=== PATIENT | male | born 1955 | race Caucasian/White ===

== ENCOUNTER → 2016-05-18 | Outpatient (CLI) | payer BC ==
--- NOTE | 2016-05-18 09:35 | XR ---
EXAM TYPE: LUMBAR SPINE X RAY SERIES COMPARISON: NONE HISTORY: Chronic low back pain FINDINGS: Alignment is anatomic. The pedicles are intact. The transverse processes are intact. There is no s pondylolysis or spondylolisthesis. There are large osteophytes noted. There is severe multilevel dege nerative disc disease at all levels. Facet arthropathy at all levels. IMPRESSION: 1. Severe degenerative disc disease at all levels with near complete loss of disc space and multileve l facet arthropathy.
== END | disposition home or self-care (01) ==
LOC: RADXRMAIN 09:04
PROVIDERS: ATTEND Psychiatry & Neurology Neurology
DX: G35 Multiple sclerosis (principal); M51.36 Other intervertebral disc degeneration, lumbar region; M46.86 Other specified inflammatory spondylopathies, lumbar region
CPT/HCPCS: 72110

== ENCOUNTER → 2018-01-24 | Outpatient (CLI) | payer MEDICARE, BC ==
--- NOTE | 2018-01-24 16:10 | MR ---
EXAMINATION TYPE: MR brain/cspine wo/w DATE OF EXAM: 01/24/2018 COMPARISON: 04/18/2015 and a 3111 HISTORY: Multiple sclerosis. Follow-up exam. TECHNIQUE: Multiplanar, multisequence images of the brain and brainstem is performed without and with IV contras t, utilizing 9 mL intravenous Gadavist gadolinium contrast is administered intravenously. Demyelinat ing disease protocol with additional Sagittal Flair sequence performed. FINDINGS: T2 Lesions Present : Yes Approximate Number of Lesions: Approximately 7 within the right cerebral hemisphere and approximately 4 within the left cerebral hemisphere. Locations Identified : Periventricular/pericallosal and juxtacortical Size of Reference Lesion(s): 1. 0.7 cm x 0.6 cm x 1.1 cm on axial image 22 and sagittal image 27 2 0.4 cm x 0.2 cm x 0.3 cm on axial image 17 and sagittal image 14 Enhancing Lesion(s) Present: No T1 Hypointense Lesion(s) Present: Yes Change from Prior: Stable Diffusion weighted images demonstrate no evidence of a recent infarct or other diffusion abnormality. There is no worrisome extra-axial fluid collection. The ventricular system and cisternal spaces ar e normal in size and appearance. The brain volume is age appropriate. Midline structures demonstrate normal morphology. The craniocervical junction appears within normal limits. Post contrast images demonstrate no abnormal enhancement. The dural venous sinuses appear pa tent. The visualized sinuses are clear and the globes are intact. Right vertebral artery is noted to be diminutive. Major intracranial flow voids are maintained. Cervical spine vertebral bodies maintain normal vertebral alignment. There is a T1/T2 hyperintense ve rtebral body hemangioma T7. No white matter plaques are seen within the cervical spinal cord. Multile becky disc desiccation is seen. Bone marrow signal is within normal limits. 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 This wa s present on the prior exam of 2010 and is benign. C2-C3: Disc desiccation without spinal canal stenosis nor neural foraminal narrowing. C3-C4: Uncovertebral hypertrophy and facet arthropathy resulting in minimal left neural foraminal josselin rowing. Broad-based disc bulge mildly narrows the ventral subarachnoid space without significant spin al canal stenosis. C3-C4: Small posterior disc osteophyte complex is seen without spinal canal stenosis or neural forami nal narrowing. C4-C5: Small broad-based disc bulge without spinal canal stenosis nor neural foraminal narrowing. C5-C6: Broad-based disc bulge and uncovertebral hypertrophy is seen in combination with facet arthrop athy creating mild bilateral neural foraminal narrowing and mild spinal canal stenosis. C6-C7: There is a broad-based disc bulge and uncovertebral hypertrophy creating mild spinal canal bon nosis and mild neural foraminal narrowing. No focal herniation. C7-T1: Mild disc desiccation without herniation. No spinal canal stenosis or neural foraminal narrowi ng. No abnormal enhancement on postcontrast images of the cervical spine. IMPRESSION: 1. No progression in mild burden nonspecific white matter change compatible the patient's provided hi story of multiple sclerosis and demyelinating disease. No enhancement to suggest active demyelination . 2. No abnormal enhancement or demyelinating plaques within the cervical spine. Mild multilevel degene rative disc disease resulting in mild spinal canal stenosis at C5-C6.
--- NOTE | 2018-01-25 13:03 | MR ---
EXAMINATION TYPE: MR thoracic spine wo/w con DATE OF EXAM: 01/24/2018 COMPARISON: None HISTORY: MS CONTRAST: Standard multiplanar, multisequence MRI departmental protocol utilizing 9 mL intravenous Gadavist jonel olinium contrast. FINDINGS: Vertebral bodies maintain normal vertebral body height and alignment. Small anterior osteophytes are appreciated. Bone marrow signal is overall within normal limits. Spinal cord signal is also within no rmal limits with no appreciable demyelinating plaques. Multilevel disc desiccation is seen, however no discrete disc herniations are present. There is a bro ad-based disc bulge at T9-T10 mildly narrowing the bilateral neural foramen. Otherwise no foraminal n arrowing is seen throughout the thoracic spine. At T12-L1 there is a broad-based disc bulge, facet ar thropathy and ligamentum flavum buckling that is only partially visualized given [id number]. Lung bases demonstrate bibasilar atelectasis. No abnormal enhancement is seen throughout the thoracic spine. IMPRESSION: 1. No demyelinating plaques or abnormal enhancement throughout the thoracic spine in this patient wit h demyelinating disease. 2. Mild multilevel degenerative disc disease of the thoracic spine with no focal disc herniation.
== END | disposition home or self-care (01) ==
LOC: RADMRIMAIN 09:51
PROVIDERS: ATTEND Psychiatry & Neurology Neurology
DX: G35 Multiple sclerosis (principal); M48.02 Spinal stenosis, cervical region; M50.30 Other cervical disc degeneration, unspecified cervical region; R90.89 Other abnormal findings on diagnostic imaging of central nervous system; M51.34 Other intervertebral disc degeneration, thoracic region
CPT/HCPCS: 82565; 70553; 72156; 72157; 36415; A9585

== ENCOUNTER 2020-12-15 15:24 | Emergency (ER) | payer BC, MEDICARE ==
[2020-12-15 15:45] VITALS: RESP 18; TEMP 99
--- NOTE | 2020-12-15 15:59 | ED ---
General Adult HPI - General Chief complaint: Abdominal Pain Stated complaint: pain in groin area Time Seen by Provider: 12/15/20 15:48 Source: patient, RN notes reviewed, old records reviewed Mode of arrival: wheelchair Limitations: no limitations - History of Present Illness Initial comments: 65-year-old male presenting with a three-week history of pain and swelling in the right medial 5. Patient states he's had this on and off for several years but has been more consistent over the past 3 weeks. He does have varicose veins in the right lower extremity and had started noticing some swelling in the medial thigh which had not been present previously. No chest pain or dyspnea. No abdominal pain. No testicular pain, no groin swelling. No history of hernia. Patient does have family history of DVT. - Related Data Allergies Allergy/AdvReac Type Severity Reaction Status Date / Time glatiramer (copolymer 1) Allergy Anaphylaxis Verified 12/15/20 15:46 [From [employer]] Review of Systems ROS Statement: Those systems with pertinent positive or pertinent negative responses have been documented in the HPI. ROS Other: All systems not noted in ROS Statement are negative. Past Medical History Past Medical History: Coronary Artery Disease (CAD) Additional Past Medical History / Comment(s): MS History of Any Multi-Drug Resistant Organisms: None Reported Past Surgical History: Heart Catheterization With Stent Past Psychological History: No Psychological Hx Reported Smoking Status: Current every day smoker Past Alcohol Use History: Rare Past Drug Use History: Marijuana General Exam Limitations: no limitations General appearance: alert, in no apparent distress Head exam: Present: atraumatic, normocephalic Eye exam: Present: normal appearance, PERRL ENT exam: Present: normal exam Neck exam: Present: normal inspection. Absent: tenderness, meningismus Respiratory exam: Present: normal lung sounds bilaterally. Absent: respiratory distress, wheezes Cardiovascular Exam: Present: regular rate, normal rhythm GI/Abdominal exam: Present: soft. Absent: distended, tenderness, guarding, hernia exam: Present: normal inspection. Absent: scrotal swelling Extremities exam: Present: normal capillary refill, other (Varicose veins throughout the right lower extremity, he has a small superficial swelling in the medial aspect of the thigh measuring approximately 2 cm. This is nonpulsatile. Distal pulses are intact 2+, 2+ femoral pulse. No skin changes to suggest infection.) Neurological exam: Present: alert, oriented X3, CN II-XII intact. Absent: motor sensory deficit Psychiatric exam: Present: normal affect, normal mood Skin exam: Present: warm, dry, intact. Absent: cyanosis, diaphoretic Course Vital Signs 12/15/20 15:42 Temperature 99.0 F Pulse Rate 81 Respiratory 18 Rate Blood Pressure 132/82 O2 Sat by Pulse 96 Oximetry Medical Decision Making - Medical Decision Making 65-year-old male who had presented with some swelling and dull aching pain in the medial thigh. He does have varicose veins throughout the leg. This does appear to be a deep varicose vein at the site of pain. Distal pulses are inta ct. There is no signs of infection. Ultrasound performed rule out DVT which is negative. Patient has an appointment with his primary care's addition tomorrow. He will maintain this appointment. Return parameters discussed. Disposition Clinical Impression: Leg pain, anterior, Varicose vein of leg Disposition: HOME SELF-CARE Condition: Fair Is patient prescribed a controlled substance at d/c from ED?: No Referrals: Kianna Nichole MD [Primary Care Provider] - 1-2 days Time of Disposition: 17:07
--- NOTE | 2020-12-15 17:04 | US ---
EXAMINATION TYPE: US venous doppler duplex LE RT DATE OF EXAM: 12/15/2020 3:58 PM COMPARISON: NONE CLINICAL HISTORY: dvt. Right groin pain x couple weeks, patient on blood thinners SIDE PERFORMED: Right TECHNIQUE: The lower extremity deep venous system is examined utilizing real time linear array sonog danna with graded compression, doppler sonography and color-flow sonography. VESSELS IMAGED: Common Femoral Vein Deep Femoral Vein Greater Saphenous Vein * Femoral Vein Popliteal Vein Small Saphenous Vein * Proximal Calf Veins (* superficial vessels) Right Leg: Appears negative for DVT IMPRESSION: Grayscale, color doppler, spectral doppler imaging performed of the deep veins of the lo wer extremities. There is normal flow, compressibility, vascular waveforms. No evidence of right lo wer extremity deep venous thrombosis.
[2020-12-15 17:28] VITALS: BP 144/98; PULSE 67
== END 2020-12-15 17:27 | disposition home or self-care (01) ==
LOC: EC 15:24
DX: I83.811 Varicose veins of right lower extremity with pain (principal); I25.10 Atherosclerotic heart disease of native coronary artery without angina pectoris; R10.30 Lower abdominal pain, unspecified; F17.200 Nicotine dependence, unspecified, uncomplicated; Z95.5 Presence of coronary angioplasty implant and graft; Z88.8 Allergy status to other drugs, medicaments and biological substances
CPT/HCPCS: 99284

== ENCOUNTER → 2021-07-15 | Outpatient (CLI) | payer MEDICARE ==
--- NOTE | 2021-07-15 10:36 | US ---
EXAMINATION TYPE: US arterial LE single level DATE OF EXAM: 07/15/2021 10:20 AM CLINICAL HISTORY: I70.213 ATHEROSCLEROSIS OF [place]PPER [place] ARTERY OF [place] EXT. History of hypertension and pr ior heart attack. Right groin pain with varicose veins. Doppler Waveforms: Right: Multiphasic Left: Multiphasic Toe Brachial Indices: Right: 0.88 Left: 1.12 IMPRESSION: Normal phasicity and TBI values bilaterally.
--- NOTE | 2021-07-15 10:52 | US ---
LOWER EXTREMITY VENOUS INSUFFICIENCY CLINICAL HISTORY: I70.213 ATHEROSCLEROSIS OF [place] ARTERY OF [place] EXT. SIDE PERFORMED: Bilateral 1) Color flow is present and patency is documented in the following vessels. No DVT or SVT is noted . Common Femoral Vein Deep Femoral Vein Femoral Vein Popliteal Vein Proximal Calf Veins Greater Saph Vein Upper Small Saph Vein 2) There is venous reflux noted at the following venous levels: Right: CFV, Upper GSV, DFV Left: CFV IMPRESSION: 1. Venous reflux evident within the left and right common femoral vein and within the right proximal greater saphenous vein and within the deep femoral vein on the right.
== END | disposition home or self-care (01) ==
LOC: RADUSWWP 08:46
PROVIDERS: ATTEND Surgery Vascular Surgery
DX: I70.213 Atherosclerosis of native arteries of extremities with intermittent claudication, bilateral legs (principal); I83.11 Varicose veins of right lower extremity with inflammation; I83.12 Varicose veins of left lower extremity with inflammation
CPT/HCPCS: 93922; 93970

== ENCOUNTER → 2021-08-07 | Outpatient (CLI) | payer MEDICARE ==
[2021-08-07 11:40] LABS: INR 0.9 (<1.2); Partial Thromboplastin Time 23.2 sec (22.0-30.0); Prothrombin Time 10.2 sec (9.0-12.0)
[2021-08-07 14:22] LABS: HCT 46.6 % (39.6-50.0); HGB 15.7 g/dL (13.0-17.0); MCH 31.5 pg (27.0-32.0); MCHC 33.7 g/dL (32.0-37.0); MCV 93.6 fL (80.0-97.0); Mean Platelet Volume 10.1 fL (9.5-12.2); NRBC Per 100 WBC 0 /100 WBCS (0.0-0.0); Platelet Count 211 X 10*3/uL (140-440); RBC 4.98 X 10*6/uL (4.40-5.60); RDW 13.5 % (11.5-14.5); WBC 9.06 X 10*3/uL (4.50-10.00)
[2021-08-07 14:47] LABS: African American GFR (CKD) 103.5 (60.0-200.0); Albumin 4.4 g/dL (3.8-4.9); Albumin/Globulin Ratio 1.69 (1.60-3.17); Anion Gap 9.3 mmol/L (10.00-18.00); Blood Urea Nitrogen 10.8 mg/dL (9.0-27.0); Calcium 9.6 mg/dL (8.7-10.3); Carbon Dioxide 29.7 mmol/L (20.0-27.5); Globulin 2.6 g/dL (1.6-3.3); Non-African American GFR(CKD) 89.3 (60.0-200.0); Potassium 4.4 mmol/L (3.5-5.5); Total Bilirubin 0.5 mg/dL (0.30-1.20)
[2021-08-07 18:07] LABS: Appearance,Urine Clear (Clear); Bacteria,Urine None Seen /HPF (None Seen); Bilirubin,Urine Negative (Negative); Blood,Urine Trace (Negative); Color,Urine Yellow (Yellow); Ketones,Urine Negative (Negative); Nitrite,Urine Negative (Negative); Specific Gravity,Urine 1.011 (1.001-1.030); Urobilinogen,Urine 0.2 (0.2,1.0)
== END | disposition home or self-care (01) ==
LOC: LABPAT 10:27
PROVIDERS: ATTEND Orthopaedic Surgery
DX: Z01.812 Encounter for preprocedural laboratory examination (principal); M16.11 Unilateral primary osteoarthritis, right hip
CPT/HCPCS: 36415; 80053; 81001; 85027; 85610; 85730; 87070

== ENCOUNTER 2021-08-19 11:19 | Day surgery (SDC) | payer MEDICARE ==
[2021-08-18 08:48] VITALS: BMI 25.0
[~2021-08-19 11:19] MED LIST: ACETAMINOPHEN TAB 500 MG TAB PO PRN; DEXAMETHASONE SOD PHOSPHATE 10 MG/ML 1 ML VIAL IV PRN; DOCUSATE 100 MG CAP PO PRN; FAMOTIDINE 20 MG/2 ML VIAL IVP PRN; KETOROLAC 15 MG/ML 1 ML VIAL IVP PRN; LIDOCAINE 1% (10MG/ML) FOR IV START INTRADERMA PRN; ONDANSETRON 4 MG/2 ML VIAL IVP PRN; ROPIVACAINE/EPI/CLONIDINE/KET 50 ML SYRINGE MISCELLANE PRN; TRANEXAMIC ACID IN NACL,ISO-OS 1,000 MG in SALINE 1 100ML.BAG IVPB PRN; oxyCODONE ER 10 MG TAB.ER.12H PO PRN
[2021-08-19] MEDS: LACTATED RINGERS 1,000 ML IV SCH (12:20)
[2021-08-19] MEDS ORDERED: PROPOFOL 10 MG/ML 20 ML VIAL IV ONE (13:29)
[2021-08-19] MEDS ORDERED: LIDOCAINE 2% INJ 20 MG/ML (2 ML VIAL) ONE (13:29)
[2021-08-19] MEDS ORDERED: HYDROmorphone (PF) 1 MG/ML ONE (13:29)
[2021-08-19] MEDS ORDERED: SUCCINYLCHOLINE CHLORIDE VIAL 200 MG/10 ML VIAL IV ONE (13:29)
[2021-08-19] MEDS ORDERED: NEOSTIGMINE 1 MG/ML 10 ML VIAL ONE (13:29)
[2021-08-19] MEDS ORDERED: TRANEXAMIC ACID IN NACL,ISO-OS 1,000 MG/100 ML BAG ONE (13:29)
[2021-08-19] MEDS ORDERED: ROCURONIUM 10 MG/ML (5 ML VIAL) IV ONE (13:29)
[2021-08-19] MEDS ORDERED: PHENYLEPHRINE-0.9% NACL SYG 1,000 MCG/10 ML SYRINGE ONE (13:29)
[2021-08-19] MEDS ORDERED: fentaNYL (PF) 50 MCG/ML 2 ML AMP ONE (13:29)
[2021-08-19] MEDS ORDERED: MIDAZOLAM 2 MG/2 ML VIAL ONE (13:29)
[2021-08-19] MEDS ORDERED: GLYCOPYRROLATE 0.2 MG/ML 2 ML VIAL ONE (13:29)
[2021-08-19] MEDS ORDERED: KETAMINE 10 MG/ML 20 ML VIAL ONE (13:29)
[2021-08-19] MEDS ORDERED: ceFAZolin 3,000 MG in SODIUM CHLORIDE 0.9% IRRIGATIO 3,000 ML IRRIGATION ONE (14:14)
[2021-08-19] MEDS ORDERED: LACTATED RINGERS 1,000 ML IV ONE (15:30)
--- NOTE | 2021-08-19 15:55 | XR ---
EXAMINATION TYPE: XR Hip Limited RT DATE OF EXAM: 08/19/2021 COMPARISON: NONE HISTORY: Postop TECHNIQUE: 8 view submitted. FINDINGS: There is postsurgical change in near anatomic alignment. There is soft tissue edema and emphysema. IMPRESSION: 1. Postoperative change. Appears in near-anatomic alignment.
--- NOTE | 2021-08-19 15:56 | FL ---
EXAMINATION TYPE: FL guidance operating room DATE OF EXAM: 08/19/2021 HISTORY: Fluoroscopy time 42 seconds of fluoroscopy provided. IMPRESSION: 1. Fluoroscopy time.
[2021-08-19] MEDS ORDERED: ONDANSETRON 4 MG/2 ML VIAL IVP PRN (16:03)
[2021-08-19] MEDS ORDERED: hydrOXYzine pamoate 25 MG CAP PO PRN (16:03)
[2021-08-19] MEDS ORDERED: HYDROmorphone 0.5 MG/0.5 ML SYRINGE IVP PRN ×3 (16:03)
[2021-08-19] MEDS ORDERED: NALOXONE 0.4 MG/ML 1 ML VIAL IV PRN (16:03)
[2021-08-19] MEDS ORDERED: HYDROcodone/APAP 5-325MG 1 EACH TAB PO PRN (16:03)
[2021-08-19] MEDS ORDERED: KETOROLAC 15 MG/ML 1 ML VIAL IVP ONE (16:05)
--- NOTE | 2021-08-19 16:06 | P.OP ---
Date of Procedure: 08/19/21 Preoperative Diagnosis: 1. Severe right hip osteoarthritis 2. Coronary artery disease 3. Former smoker (patient quit 1 month prior to surgery) Postoperative Diagnosis: Same Procedure(s) Performed: Right direct anterior total hip arthroplasty Implants: 1. Winters Trident II 56 cup 2. Gianna accolade II size # 9 standard offset femoral stem 3. Biolox delta ceramic femoral head 36 mm, -2.5 mm neck Anesthesia: GETA Surgeon: Gerson Bolaños Survey And Mapping Technician #1: Rikki Pleitez Estimated Blood Loss (ml): 200 IV fluids (ml): 1,200 Pathology: other (femoral head sent to pathology) Condition: stable Disposition: PACU Indications for Procedure: I had a long discussion with the patient in the office on the potential risks and complications of an elective total hip replacement through a direct anterior approach. Risks discussed include, but are certainly not limited to, risks from anesthesia, superficial infection requiring local wound care or antibiotics, deep osvaldo-prosthetic joint infection and the treatment required to eradicate infection, intraoperative fracture, postoperative periprosthetic fracture, damage to local blood vessels or nerves particularly the lateral femoral cutaneous nerve, delayed wound healing requiring local wound care or possibly surgical debridement, hip dislocation, leg length discrepancy, soft tissue irritation around the total hip implant such as iliopsoas tendinitis or trochanteric bursitis, wear and osteolysis from the implants, squeaking or audible noises, groin pain, thigh pain, heterotopic ossification, stiffness, aseptic loosening of the implants, dissatisfaction with surgical outcome, need for revision surgery, DVT, PE, swelling of the operative extremity, acute coronary event, stroke, failure to thrive, and possibly loss of life or limb. The patient understands that while these are the most common complications after an elective hip replacement there are certainly other less common complications possible. They were given ample time to ask questions regarding the potential complications of a hip replacement. Following our discussion the patient provided their verbal and written consent to go forward with an elective total hip replacement. The patient has a history of smoking. We will long discussion on the risks of smoking and how pertains to total hip replacement particularly with delayed wound healing and infection. The patient was able to quit smoking for one month prior to surgery. He was encouraged to refrain from smoking in the postoperative period as well. Operative Findings: Severe hip osteoarthritis and external rotation contracture Description of Procedure: The patient was identified in the preoperative holding area and the correct hip was marked with my initials. I reviewed the procedure and consent with the patient. All of their questions were answered. The patient was then brought back into the operating room by anesthesia. While on the [facility] anesthesia was administered by the anesthesia team. Preoperative antibiotics and tranexamic acid were also given. After the patient was under anesthesia I examined their ankles to determine their preoperative leg length discrepancy. The skin over the anterior aspect of the hip was shaved to remove hair over the site of planned incision. Both feet and ankles were padded with webril and boots for the [place] were applied. The patient was then carefully transferred onto the [place] table. A perineal post was immediately placed. The arms were placed on arm holders and were well-padded. Both boots were secured to the spars on the [place] table. The patient was positioned so that the pelvis was centered over the post. Nonsterile drapes were applied. A timeout was performed identifying the correct patient, operative extremity, and procedure. At this point fluoroscopy was brought in to take preoperative images of the pelvis and operative hip. Using the standing AP pelvis from the office as a template, a comparable image was obtained with fluoroscopy. A metallic bar was used to create a bi-ischial line for use as a reference to leg length adjustments during the procedure. Global offset was also measured on both the operative and nonoperative leg. Fluoroscopy was then brought out and a pre-scrub using a chlorhexidine scrub brush was performed. The operative limb was then prepped and draped in the standard sterile fashion. An anterior longitudinal incision was made lateral and distal to the ASIS. The skin and subcutaneous tissues were incised sharply. The underlying tensor fasci a was identified and incised in its midportion. The fascia was dissected free from the underlying muscle and the muscle belly was retracted. A blunt tipped cobra retractor was placed over the superior neck under the muscle fibers of the gluteus minimus. The deep enveloping fascia of the tensor was incised. The anterior leash of vessels were then identified and cauterized. The fascia between the rectus and the capsule was then incised and the pre-capsular fat was excised. A second Cobra was placed inferior to the neck. The interval between the rectus and iliocapsularis and the hip capsule was developed and a retractor was placed carefully over the anterior rim of the acetabulum. A T-shaped anterior capsulotomy was performed. The superior capsular leaflet was left in place in the inferior capsular flap was excised. The Cobra retractors were placed intracapsularly. We then made a femoral neck osteotomy according to preoperative and intraoperative templating and confirmed the level of the osteotomy using fluoroscopic imaging. The femoral head was removed, passed off to the back table, and sized. The superior capsular flap was excised. Retractors were placed circumferentially exposing the acetabulum. We then circumferentially debrided the acetabulum free of labrum and osteophytes. The pulvinar was removed to fully visualize the cotyloid fossa. We then sequentially reamed to achieve peripheral fit and excellent bleeding subchondral bone. The socket was thoroughly irrigated. The acetabular component was impacted into the appropriate position using fluoroscopy to guide version, inclination, and depth of insertion taking care to have a comparable image of the AP pelvis to the standing image taken in the office. An excellent press-fit was achieved and final position was confirmed using fluoroscopy. The press fit was augmented with bony cancellus dome screws. The liner was then impacted into the socket. Attention was then turned to the femur. The remnant dorsal lateral capsule was excised. The short external rotators were visible and protected. A bone hook was used to confirm appropriate translation of the trochanter away from the acetabulum. The leg was then extended and adducted and the bone hook was used to elevate the femur for broaching. A box osteotome and blunt tipped canal sound was then utilized to gain access to the femoral canal. We then sequentially broached the femur in appropriate anteversion until excellent torsional stability was achieved. The neck cut was brought flush to the trial broach with a calcar planar. A trial neck and head were then placed onto the broach and the hip was atraumatically reduced under direct visualization. External rotation to 90 was performed to assess stability. Fluoroscopy was brought in. An AP and lateral fluoroscopic image of the proximal femur was obtained to assess position and fill of the trial broach. An AP of the pelvis was then obtained and matched to the preoperative image taken. A bi-ischial bar was then placed and measurements were taken to assess changes in length and offset. The hip was then carefully dislocated, the proximal femur was exposed, and the trial implants were removed. The wound and proximal femur was thoroughly irrigated using sterile saline and pulsatile lavage. The final femoral implant was dispensed and gently tapped into place generating an excellent press-fit. The trunnion was cleansed and the final head was tapped into place to engage the Gomez taper. The acetabulum was irrigated and visualized to be free of debris. The hip was carefully reduced. Stability was checked clinically with external rotation to 90 and there was no evidence of instability. Final fluoroscopic images were taken. The wound was then thoroughly irrigated and soaked with a dilute Betadine rinse for 3 minutes. 3 L of sterile saline was irrigated through the wound using pulsatile lavage. Local anesthetic cocktail was injected into the soft tissues around the surgical field. A deep drain was placed. The wound was then closed in layers. A sterile dressing was placed over the surgical incision and drain site. The drapes were taken down and the patient was carefully transferred off of the [place] table. Following removal of the boots the leg lengths felt acceptable. The patient was then taken to recovery room having tolerated the procedure well. Rikki Pleitez PA-C was required as a skilled library serials assistant for patient positioning, surgical exposure, retraction, placement of implants, and closure of the surgical wound. PLAN: The patient can weight-bear as tolerated on the operative extremity. 2 doses of postoperative antibiotics. DVT prophylaxis with aspirin 81 mg twice a day based on preoperative risk stratification. Physical therapy for gait training. Discontinue drain postoperative day #1 if output is less than 100 mL per shift.
[2021-08-19] MEDS: HYDROmorphone 0.5 MG/0.5 ML SYRINGE IVP PRN ×3 (16:07→16:33)
[2021-08-19] MEDS ORDERED: hydrOXYzine HCL 25 MG TAB PO PRN (17:02)
[2021-08-19] MEDS: ATORVASTATIN 40 MG TAB PO SCH (17:52)
[2021-08-19] MEDS: CYANOCOBALAMIN 500 MCG TAB PO SCH (17:53)
[2021-08-19] MEDS: CHOLECALCIFEROL 25 MCG (1000 IU) TABLET PO SCH (17:53)
[2021-08-19] MEDS ORDERED: SENNOSIDES-DOCUSATE SODIUM 1 EACH TAB PO SCH (21:00)
[2021-08-19] MEDS: ASPIRIN 81 MG PO SCH (21:41)
[2021-08-20] MEDS: HYDROcodone/APAP 5-325MG 1 EACH TAB PO PRN ×3 (00:14→16:46)
[2021-08-20] MEDS: ASPIRIN 81 MG PO SCH (08:30)
[2021-08-20] MEDS: CHOLECALCIFEROL 25 MCG (1000 IU) TABLET PO SCH (08:30)
[2021-08-20] MEDS: CYANOCOBALAMIN 500 MCG TAB PO SCH (08:30)
[2021-08-20] MEDS: ATORVASTATIN 40 MG TAB PO SCH (08:30)
[2021-08-20] MEDS: LACTATED RINGERS 1,000 ML IV SCH (08:31)
[2021-08-20] MEDS ORDERED: lisinopriL 10 MG TAB PO SCH (09:00)
[2021-08-20 09:25] LABS: Basophils # (A) 0.02 X 10*3/uL (0.00-0.10); Basophils % (A) 0.1 %; Eosinophils # (A) 0.01 X 10*3/uL (0.04-0.35); Eosinophils % (A) 0.1 %; HCT 37.5 % (39.6-50.0); HGB 12.8 g/dL (13.0-17.0); Immature Grans, Automated 0.8 %; Lymphocytes # (A) 1.01 X 10*3/uL (0.90-5.00); Lymphocytes % (A) 7.4 %; MCH 31.5 pg (27.0-32.0); MCHC 34.1 g/dL (32.0-37.0); MCV 92.4 fL (80.0-97.0); Mean Platelet Volume 10.1 fL (9.5-12.2); Monocytes # (A) 0.94 X 10*3/uL (0.20-1.00); Monocytes % (A) 6.9 %; NRBC Per 100 WBC 0 /100 WBCS (0.0-0.0); Neutrophils % (A) 84.7 %; Platelet Count 181 X 10*3/uL (140-440); RBC 4.06 X 10*6/uL (4.40-5.60); RDW 13.5 % (11.5-14.5); WBC 13.69 X 10*3/uL (4.50-10.00)
[2021-08-20 09:44] LABS: African American GFR (CKD) 103.5 (60.0-200.0); Albumin 3.2 g/dL (3.8-4.9); Albumin/Globulin Ratio 1.68 (1.60-3.17); Anion Gap 9.2 mmol/L (10.00-18.00); BUN/Creat Ratio 17.78 Ratio (12.00-20.00); Calcium 8.5 mg/dL (8.7-10.3); Carbon Dioxide 24.8 mmol/L (20.0-27.5); Globulin 1.9 g/dL (1.6-3.3); Non-African American GFR(CKD) 89.3 (60.0-200.0); Potassium 4.4 mmol/L (3.5-5.5); Total Bilirubin 0.5 mg/dL (0.30-1.20); Total Protein 5.1 g/dL (6.2-8.2)
[2021-08-20 11:12] VITALS: RESP 16
[2021-08-20] MEDS ORDERED: TAMSULOSIN 0.4 MG CAP.ER.24H PO SCH (12:00)
[2021-08-20 15:15] VITALS: BP 106/68; PULSE 62; TEMP 98.2
--- NOTE | 2021-08-20 17:09 | P.DS ---
Providers Expected date of discharge: 08/20/21 Attending physician: Gerson Bolaños Consults: 08/19/21 16:03 Consult Physician Routine Consulting Provider: Viki Barros Consult Reason/Comments: medical management Do you want consulting provider notified?: Yes Primary care physician: Kianna Nichole [facility] Course: This is a 66-year-old male who was last seen in our office with complaint of con tinued right hip pain. The patient has a known history of degenerative arthritis of the right hip and presents to discuss surgical options. After discussion and consideration the patient elects to proceed with total right hip arthroplasty. He is seen preoperatively by his PCP Dr. Nichole and cleared for surgery. The patient is admitted to [facility] for total right hip arthroplasty. The procedure is performed without complication or sequelae. The patient is doing well postoperatively. Vital signs and postoperative labs are stable. Patient is seen and examined bedside this morning. He states the pain in his right hip is well controlled at this time. He is ambulating with a walker with minimal assistance. He is tolerating his diet well. Per nursing, he has had is sues urinating although Flomax has been initiated by internal medicine AND he has been cleared for return home. Patient has since voided freely. Patient denies chest pain, shortness of breath, other, vomiting, fevers, chills. On examination, patient is sitting up in bed in no apparent distress. he is alert and oriented 3. On inspection of the right hip, there is a clean, dry, intact operative dressing in place with no bleeding or drainage through the dressing. Hemovac drain is removed bedside. There is mild swelling of the thigh, the thigh soft and compressible. Motor and sensory function is intact of the right lower extremity. Femoral nerve function is intact. Right lower extremities were well perfused with brisk capillary refill distally. Calf is soft and nontender to palpation. The patient is discharged to home today in good condition, pending medical clearance. Please see discharge orders. Please refer to the med rec for accurate list of medications. Plan - Discharge Summary Discharge Rx Participant: Yes New Discharge Prescriptions: New Aspirin 81 mg PO BID 30 Days #60 tab Docusate [Colace] 100 mg PO BID #60 capsule HYDROcodone/APAP 5-325MG [Tim[place] 5-325] 1 - 2 tab PO Q6HR PRN #40 tab PRN Reason: Pain Omeprazole 40 mg PO DAILY 30 Days #30 cap Diclofenac Sodium [Voltaren] 75 mg PO BID 30 Days #60 tab No Action Atorvastatin [Lipitor] 40 mg PO DAILY Cholecalciferol [Vitamin D3 (25 Mcg = 1000 Iu)] 25 mcg PO DAILY Aspirin 81 mg PO DAILY ramipriL [Ramipril] 2.5 mg PO DAILY hydrOXYzine HCL [Atarax] 25 mg PO TID PRN PRN Reason: hives atenoloL [Tenormin] 12.5 mg PO DAILY Cyanocobalamin (Vitamin B-12) [Vitamin B-12] 1,000 mcg PO DAILY Discharge Medication List Aspirin 81 mg PO DAILY 08/18/21 [History] Atorvastatin [Lipitor] 40 mg PO DAILY 08/18/21 [History] Cholecalciferol [Vitamin D3 (25 Mcg = 1000 Iu)] 25 mcg PO DAILY 08/18/21 [History] Cyanocobalamin (Vitamin B-12) [Vitamin B-12] 1,000 mcg PO DAILY 08/18/21 [History] atenoloL [Tenormin] 12.5 mg PO DAILY 08/18/21 [History] hydrOXYzine HCL [Atarax] 25 mg PO TID PRN 08/18/21 [History] ramipriL [Ramipril] 2.5 mg PO DAILY 08/18/21 [History] Aspirin 81 mg PO BID 30 Days #60 tab 08/20/21 [Rx] Diclofenac Sodium [Voltaren] 75 mg PO BID 30 Days #60 tab 08/20/21 [Rx] Docusate [Colace] 100 mg PO BID #60 capsule 08/20/21 [Rx] HYDROcodone/APAP 5-325MG [[place] 5-325] 1 - 2 tab PO Q6HR PRN #40 tab 08/20/21 [Rx] Omeprazole 40 mg PO DAILY 30 Days #30 cap 08/20/21 [Rx] Follow up Appointment(s)/Referral(s): [facility] [NON-STAFF] - As Needed (walker and hospital bed) [facility], [NON-STAFF] - As Needed Gerson Bolaños MD [Medical Doctor] - 2 Weeks Patient Instructions/Handouts: Precautions after Total Joint Replacement Surgery (DC), Joint Replacement Surgery (DC), Total Hip Replacement (DC), Anterior Hip Replacement (DC) Activity/Diet/Wound Care/Special Instructions: Weight bear as tolerated on operative leg with a walker. Keep operative dressing intact until follow-up appointment. Take pain medications as prescribed. Take aspirin 81mg BID x 4 weeks for blood clot prevention. Follow-up in the office in [address] Bolaños. Call the office with any questions or concerns, . Discharge Disposition: HOME WITH HOME HEALTH SERVICES
--- NOTE | 2021-08-20 18:14 | P.CONS ---
History of Present Illness - Reason for Consult Consult date: 08/19/21 - History of Present Illness Pavel Mario, who was admitted to [facility] by Dr. Bolaños and underwent right total hip arthroplasty for history of severe right hip osteoarthritis that failed conservative management. Patient was admitted to medical floor, consultation for medical management was requested. He has a known history of coronary artery disease, with history of angioplasty and stent placement, history of hypertension, history of hyperlipidemia, history of osteoarthritis, history of kidney stones, history of spinal stenosis with previous history of epidural injection in the lumbar spine. On review of systems patient is alert and oriented 3 in no apparent distress he is complaining of pain in the right hip area otherwise he denies any complaints there is no fever or chills no headache or dizziness no chest pain no shortness of breath no cough no nausea or vomiting no abdominal pain no diarrhea and no urinary symptoms. 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 x2, 4 stents total, arthroscopy left knee, CTS right hand, colonoscopy, pain procedures Past Anesthesia/Blood Transfusion Reactions: Postoperative Nausea & Vomiting (PONV) Additional Past Anesthesia/Blood Transfusion Reaction / Comm: nausea @times Date of Last Stent Placement:: 2010 Smoking Status: Former smoker - Past Family History Mother Family Medical History: No Reported History Father Family Medical History: Deep Vein Thrombosis (DVT) Medications and Allergies Home Medications Medication Instructions Recorded Confirmed Type Aspirin 81 mg PO DAILY 08/18/21 08/18/21 History Atorvastatin [Lipitor] 40 mg PO DAILY 08/18/21 08/18/21 History Cholecalciferol [Vitamin D3 (25 25 mcg PO DAILY 08/18/21 08/18/21 History Mcg = 1000 Iu)] Cyanocobalamin (Vitamin B-12) 1,000 mcg PO DAILY 08/18/21 08/18/21 History [Vitamin B-12] atenoloL [Tenormin] 12.5 mg PO DAILY 08/18/21 08/18/21 History hydrOXYzine HCL [Atarax] 25 mg PO TID PRN 08/18/21 08/19/21 History ramipriL [Ramipril] 2.5 mg PO DAILY 08/18/21 08/18/21 History Aspirin 81 mg PO BID 30 Days #60 tab 08/20/21 Rx Diclofenac Sodium [Voltaren] 75 mg PO BID 30 Days #60 tab 08/20/21 Rx Docusate [Colace] 100 mg PO BID #60 capsule 08/20/21 Rx HYDROcodone/APAP 5-325MG [[place] 1 - 2 tab PO Q6HR PRN #40 tab 08/20/21 Rx 5-325] Omeprazole 40 mg PO DAILY 30 Days #30 cap 08/20/21 Rx Allergies Allergy/AdvReac Type Severity Reaction Status Date / Time glatiramer (copolymer 1) Allergy Anaphylaxis Verified 08/19/21 11:49 [From Copaxone] Physical Exam Vitals: Vital Signs Temp Pulse Pulse Resp BP Pulse Ox 08/19/21 16:40 71 16 115/76 97 08/19/21 16:25 87 16 127/77 96 08/19/21 16:10 87 16 115/76 100 08/19/21 15:57 97.9 F 87 12 133/78 100 08/19/21 11:52 98.5 F 70 18 122/83 97 Intake and Output 08/19/21 08/19/21 08/19/21 06:59 14:59 22:59 Intake Total 1051 300 Output Total 200 Balance 1051 100 Intake: IV 1051 300 Output: Estimated Blood Loss 200 Other: Weight 85.5 kg In general patient is alert and oriented x 3 in no distress HEENT head normocephalic and atraumatic Neck is supple no JVD no goiter no lymphadenopathy no carotid bruit Chest examination is clear to auscultation no crackles no wheezing Cardiac exam reveals regular heart sounds S1 and S2 no gallops no murmurs Abdomen is soft nontender no organomegaly with normal bowel sounds Extremity exam reveals no edema no cyanosis or clubbing Neurological examination reveals no gross focal deficits Results CBC & Chem 7: 08/20/21 04:13 08/20/21 04:13 Assessment and Plan Plan: Osteoarthritis of the right hip status post right total hip arthroplasty Pain management and DVT prophylaxis as per orthopedic protocol Underlying history of coronary artery disease with previous history of angioplasty and stent placement Stable at this time there is no chest pain or shortness of breath or any symptoms to suggest acute coronary syndrome Underlying history of hypertension Underlying history of hyperlipidemia Underlying history of osteoarthritis At this time patient is admitted to medical floor Home medications reviewed and reordered Will check labs in a.m. Will follow closely during this admission
--- NOTE | 2021-08-20 18:17 | P.PN ---
Subjective Progress Note Date: 08/20/21 Pavel Mario, who was admitted to [facility] by Dr. Bolaños and underwent right total hip arthroplasty for history of severe right hip osteoarthritis that failed conservative management. Patient was admitted to medical floor, consultation for medical management was requested. He has a known history of coronary artery disease, with history of angioplasty and stent placement, history of hypertension, history of hyperlipidemia, history of osteoarthritis, history of kidney stones, history of spinal stenosis with previous history of epidural injection in the lumbar spine. On review of systems patient is alert and oriented 3 in no apparent distress he is complaining of pain in the right hip area otherwise he denies any complaints there is no fever or chills no headache or dizziness no chest pain no shortness of breath no cough no nausea or vomiting no abdominal pain no diarrhea and no urinary symptoms. On 08/20/2021 patient was seen and examined on the medical floor he is alert and oriented 3 in no apparent distress there is no fever or chills no headache or dizziness no chest pain no shortness of breath no cough no nausea or vomiting no abdominal pain no diarrhea and no blood in the stools. Patient developed difficulty with urination he had high post void residual, he was started today on Flomax 0.4 mg by mouth daily his symptoms improved after taking Flomax, p atient will be discharged home today, he was given a prescription for Flomax 0.4 mg by mouth daily. He was instructed to return to emergency room if having episodes of more than 12 hours without urination. He will be followed by his primary care physician Dr. Nichole and by orthopedic surgeon Objective - Vital Signs Vital signs: Vital Signs Temp 98.2 F 08/20/21 14:00 Pulse 62 08/20/21 14:00 Resp 16 08/20/21 14:00 BP 106/68 08/20/21 14:00 Pulse Ox 93 L 08/20/21 14:00 Intake & Output 08/19/21 08/20/21 08/20/21 18:59 06:59 18:59 Intake Total 2020 600 Output Total 200 450 770 Balance 1821 -450 -170 Weight 85.5 kg Intake: IV 182 Lactated Ringers 1,000 ml 20 @ 20 mls/hr IV .Q24H [facility] Rx#:[id number] Intake, IV Titration 100 Amount ceFAZolin 2 gm In Sodium 100 Chloride 0.9% 50 ml @ 100 mls/hr IVPB Q8H [facility] Rx#: [id number] Oral 200 500 Output: Drainage 120 Right 120 Urine 450 550 Straight 450 Post Void Residual 100 Estimated Blood Loss 200 Other: # Voids 1 # Bowel Movements 0 - Exam In general patient is alert and oriented x 3 in no distress HEENT head normocephalic and atraumatic Neck is supple no JVD no goiter no lymphadenopathy no carotid bruit Chest examination is clear to auscultation no crackles no wheezing Cardiac exam reveals regular heart sounds S1 and S2 no gallops no murmurs Abdomen is soft nontender no organomegaly with normal bowel sounds Extremity exam reveals no edema no cyanosis or clubbing Neurological examination reveals no gross focal deficits - Labs CBC & Chem 7: 08/20/21 04:13 08/20/21 04:13 Labs: Abnormal Lab Results - Last 24 Hours (Table) 08/20/21 08/20/21 Range/Units 04:13 04:13 WBC 13.69 H (4.50-10.00) X 10*3/uL RBC 4.06 L (4.40-5.60) X 10*6/uL Hgb 12.8 L (13.0-17.0) g/dL Hct 37.5 L (39.6-50.0) % Immature Gran # 0.11 H (0.00-0.04) X 10*3/uL Neutrophils # 11.60 H (1.80-7.70) X 10*3/uL Eosinophils # 0.01 L (0.04-0.35) X 10*3/uL Anion Gap 9.20 L (10.00-18.00) mmol/L Glucose 137 H (70-110) mg/dL Calcium 8.5 L (8.7-10.3) mg/dL Total Protein 5.1 L (6.2-8.2) g/dL Albumin 3.2 L (3.8-4.9) g/dL Assessment and Plan Plan: Osteoarthritis of the right hip status post right total hip arthroplasty Pain management and DVT prophylaxis as per orthopedic protocol Underlying history of coronary artery disease with previous history of angioplasty and stent placement Stable at this time there is no chest pain or shortness of breath or any symptoms to suggest acute coronary syndrome Underlying history of hypertension Underlying history of hyperlipidemia Underlying history of osteoarthritis At this time patient is admitted to medical floor Home medications reviewed and reordered Will check labs in a.m. Will follow closely during this admission
== END 2021-08-20 18:14 | disposition home health service (06) ==
LOC: OR 11:19 → 4SSUR 15:51 → OR 08-20 18:14
PROVIDERS: ATTEND Orthopaedic Surgery
DX: M16.11 Unilateral primary osteoarthritis, right hip (principal); E78.5 Hyperlipidemia, unspecified; I10 Essential (primary) hypertension; I25.10 Atherosclerotic heart disease of native coronary artery without angina pectoris; I25.2 Old myocardial infarction; M19.90 Unspecified osteoarthritis, unspecified site; Z79.1 Long term (current) use of non-steroidal anti-inflammatories (NSAID); Z79.82 Long term (current) use of aspirin; Z79.899 Other long term (current) drug therapy; Z87.442 Personal history of urinary calculi; Z87.891 Personal history of nicotine dependence; Z95.5 Presence of coronary angioplasty implant and graft; Z96.641 Presence of right artificial hip joint; Z88.8 Allergy status to other drugs, medicaments and biological substances
CPT/HCPCS: 27130; 97161; 97535; 97165; 80053; 85025; 88300; 73501; C1776; J2250; J0330; J1100; J2710; J0690 ×3; J2405; J3010; J1170 ×2; J1885; J2370; J2704; J2001; 86850; 86900; 86901

== ENCOUNTER → 2021-12-23 | Outpatient (CLI) | payer MEDICARE ==
[2021-12-23 09:42] LABS: INR 0.9 (<1.2); Partial Thromboplastin Time 22.1 sec (22.0-30.0); Prothrombin Time 10.1 sec (9.0-12.0)
[2021-12-23 16:17] LABS: HCT 47.9 % (39.6-50.0); HGB 15.6 g/dL (13.0-17.0); MCH 29.2 pg (27.0-32.0); MCHC 32.6 g/dL (32.0-37.0); MCV 89.7 fL (80.0-97.0); Mean Platelet Volume 9.4 fL (9.5-12.2); NRBC Per 100 WBC 0 /100 WBCS (0.0-0.0); Platelet Count 232 X 10*3/uL (140-440); RBC 5.34 X 10*6/uL (4.40-5.60); RDW 14.5 % (11.5-14.5)
[2021-12-23 16:32] LABS: African American GFR (CKD) 91.1 (60.0-200.0); Albumin 4.1 g/dL (3.8-4.9); Albumin/Globulin Ratio 1.58 (1.60-3.17); Anion Gap 12.5 mmol/L (10.00-18.00); BUN/Creat Ratio 12.8 Ratio (12.00-20.00); Blood Urea Nitrogen 12.8 mg/dL (9.0-27.0); Calcium 9.5 mg/dL (8.7-10.3); Carbon Dioxide 24.5 mmol/L (20.0-27.5); Globulin 2.6 g/dL (1.6-3.3); Non-African American GFR(CKD) 78.6 (60.0-200.0); Potassium 4.7 mmol/L (3.5-5.5); Total Bilirubin 0.3 mg/dL (0.30-1.20); Total Protein 6.7 g/dL (6.2-8.2)
[2021-12-23 18:51] LABS: Appearance,Urine Clear (Clear); Bilirubin,Urine Negative (Negative); Blood,Urine Negative (Negative); Color,Urine Yellow (Yellow); Ketones,Urine Trace mg/dL (Negative); Nitrite,Urine Negative (Negative); Specific Gravity,Urine 1.025 (1.001-1.030); Urobilinogen,Urine 0.2 (0.2,1.0)
== END | disposition home or self-care (01) ==
LOC: LABPAT 08:53
PROVIDERS: ATTEND Orthopaedic Surgery
DX: Z01.812 Encounter for preprocedural laboratory examination (principal)
CPT/HCPCS: 80053; 81003; 85027; 85610; 85730; 87070

== ENCOUNTER → 2022-01-14 | Outpatient (CLI) | payer MEDICARE ==
[2022-01-14 12:37] LABS: INR 0.9 (<1.2); Partial Thromboplastin Time 22.9 sec (22.0-30.0); Prothrombin Time 10.3 sec (9.0-12.0)
[2022-01-14 18:35] LABS: Appearance,Urine Clear (Clear); Bilirubin,Urine Negative (Negative); Blood,Urine Negative (Negative); Color,Urine Yellow (Yellow); Ketones,Urine Negative (Negative); Nitrite,Urine Negative (Negative); Specific Gravity,Urine 1.018 (1.001-1.030); Urobilinogen,Urine 0.2 (0.2,1.0)
[2022-01-14 19:46] LABS: HCT 46.4 % (39.6-50.0); MCH 28.9 pg (27.0-32.0); MCHC 32.3 g/dL (32.0-37.0); MCV 89.4 fL (80.0-97.0); Mean Platelet Volume 10.4 fL (9.5-12.2); NRBC Per 100 WBC 0 /100 WBCS (0.0-0.0); Platelet Count 203 X 10*3/uL (140-440); RBC 5.19 X 10*6/uL (4.40-5.60); RDW 14.7 % (11.5-14.5); WBC 6.98 X 10*3/uL (4.50-10.00)
[2022-01-14 20:01] LABS: African American GFR (CKD) 103.5 (60.0-200.0); Albumin 4.3 g/dL (3.8-4.9); Albumin/Globulin Ratio 1.79 (1.60-3.17); BUN/Creat Ratio 11.11 Ratio (12.00-20.00); Calcium 9.2 mg/dL (8.7-10.3); Globulin 2.4 g/dL (1.6-3.3); Non-African American GFR(CKD) 89.3 (60.0-200.0); Potassium 4.1 mmol/L (3.5-5.5); Total Bilirubin 0.5 mg/dL (0.30-1.20); Total Protein 6.7 g/dL (6.2-8.2)
== END | disposition home or self-care (01) ==
LOC: LABPAT 11:24
PROVIDERS: ATTEND Orthopaedic Surgery
DX: Z01.818 Encounter for other preprocedural examination (principal)
CPT/HCPCS: 80053; 81003; 85027; 85610; 85730; 93005

== ENCOUNTER 2022-01-20 11:09 | Day surgery (SDC) | payer MEDICARE ==
[2022-01-19 11:18] VITALS: BMI 24.1
[~2022-01-20 11:09] MED LIST changes: +HYDROmorphone 0.5 MG/0.5 ML SYRINGE IVP PRN; +LACTATED RINGERS 1,000 ML IV SCH; +MIDAZOLAM 2 MG/2 ML VIAL IV PRN
[2022-01-20] MEDS: DEXAMETHASONE SOD PHOSPHATE 4 MG/ML 1 ML VIAL IV ONE ×2 (12:08→15:55)
[2022-01-20] MEDS: ONDANSETRON 4 MG/2 ML VIAL IVP ONE ×2 (12:09→15:55)
[2022-01-20] MEDS ORDERED: TRANEXAMIC ACID IN NACL,ISO-OS 1,000 MG in SALINE 1 100ML.BAG IVPB PRN (12:15)
[2022-01-20] MEDS ORDERED: fentaNYL (PF) 50 MCG/ML 2 ML AMP IVP ONE (12:29)
[2022-01-20] MEDS ORDERED: MIDAZOLAM 2 MG/2 ML VIAL IVP ONE (12:29)
[2022-01-20] MEDS ORDERED: NEOSTIGMINE 1 MG/ML 10 ML VIAL ONE (12:38)
[2022-01-20] MEDS ORDERED: SODIUM CHLORIDE 0.9% (PF) 10 ML VIAL ONE (12:38)
[2022-01-20] MEDS ORDERED: fentaNYL (PF) 50 MCG/ML 2 ML AMP ONE (12:38)
[2022-01-20] MEDS ORDERED: PROPOFOL 10 MG/ML 20 ML VIAL IV ONE (12:38)
[2022-01-20] MEDS ORDERED: ROPIVACAINE 5 MG/ML 30 ML VIAL ONE (12:38)
[2022-01-20] MEDS ORDERED: MIDAZOLAM 2 MG/2 ML VIAL ONE (12:38)
[2022-01-20] MEDS ORDERED: HYDROmorphone (PF) 1 MG/ML ONE (12:38)
[2022-01-20] MEDS ORDERED: GLYCOPYRROLATE 0.2 MG/ML 2 ML VIAL ONE (12:38)
[2022-01-20] MEDS ORDERED: ROCURONIUM 10 MG/ML (5 ML VIAL) IV ONE (12:38)
--- NOTE | 2022-01-20 13:38 | P.ANPRN ---
Procedure Note - Anesthesia - Nerve Block Performed Left Erector Spinae Time Out Performed: Yes (12:28) Date of Procedure: 01/20/22 Procedure Start Time: : Procedure Stop Time: 12:36 Location of Patient: PreOp Indication: Acute Post-Operative Pain, Requested by Surgeon (Dr Bolaños) Sedation Type: Sedate with meaningful contact maintained Preparation: Sterile Prep Position: Sitting Catheter: None Needle Types: Pajunk Needle Gauge: 21 Ultrasound used to visualize needle placement: Yes Ultrasound used to observe medication spread: Yes Injectate: 0.5% Ropivacaine (see comment for volume) (15cc +10cc PF Normal saline) Blood Aspirated: No Pain Paresthesia on Injection Noted: No Resistance on Injection: Normal Image Stored and Saved: Yes Events: Uneventful and Well Tolerated
[2022-01-20] MEDS ORDERED: LACTATED RINGERS 1,000 ML IV ONE (14:54)
[2022-01-20] MEDS ORDERED: NALOXONE 0.4 MG/ML 1 ML VIAL IV PRN (15:07)
[2022-01-20] MEDS ORDERED: HYDROmorphone 0.5 MG/0.5 ML SYRINGE IVP PRN ×3 (15:07)
[2022-01-20] MEDS ORDERED: HYDROcodone/APAP 5-325MG 1 EACH TAB PO PRN ×2 (15:07)
[2022-01-20] MEDS ORDERED: ONDANSETRON 4 MG/2 ML VIAL IVP PRN ×2 (15:07→17:58)
[2022-01-20] MEDS ORDERED: hydrOXYzine pamoate 25 MG CAP PO PRN (15:07)
--- NOTE | 2022-01-20 15:10 | P.OP ---
Date of Procedure: 01/20/22 Preoperative Diagnosis: Severe left hip osteoarthritis Postoperative Diagnosis: Same Procedure(s) Performed: Left direct anterior total hip arthroplasty Implants: 1. Gianna Trident II Acetabular Cup, Size #56 2. Gianna Insignia Size # 10 Femoral Stem, Standard Offset 3. Biolox delta femoral head, 36mm, -2.5 neck Anesthesia: GETA Surgeon: Gerson Bolaños Cigar Head Holer #1: Rikki Pleitez Estimated Blood Loss (ml): 200 IV fluids (ml): 950 Pathology: none sent (Routine gross or histopathologic evaluation is not indicated based on my preoperative evaluation of the x-rays and intraoperative findings. I did not request sending the specimen for pathology.) Condition: stable Disposition: PACU Indications for Procedure: The patient is a very pleasant 66-year-old male with a long-standing history of bilateral hip osteoarthritis. He previously underwent a right total hip arthroplasty by me and did well. He requested proceeding with a left total hip arthroplasty. 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 He recently stopped antibiotics. His index finger appears well healed with no sign of infection. Both myself and Dr. Helton felt he was safe to proceed with a total hip replacement. I had a long discussion with the patient in the office on the potential risks and complications of an elective total hip replacement through a direct anterior approach. Risks discussed include, but are certainly not limited to, risks from anesthesia, superficial infection requiring local wound care or antibiotics, deep osvaldo-prosthetic joint infection and the treatment required to eradicate infection, intraoperative fracture, postoperative periprosthetic fracture, damage to local blood vessels or nerves particularly the lateral femoral cutaneous nerve, delayed wound healing requiring local wound care or possibly surgical debridement, hip dislocation, leg length discrepancy, soft tissue irritation around the total hip implant such as iliopsoas tendinitis or trochanteric bursitis, wear and osteolysis from the implants, squeaking or audible noises, groin pain, thigh pain, heterotopic ossification, stiffness, aseptic loosening of the implants, dissatisfaction with surgical outcome, need for revision surgery, DVT, PE, swelling of the operative extremity, acute coronary event, stroke, failure to thrive, and possibly loss of life or limb. The patient understands that while these are the most common complications after an elective hip replacement there are certainly other less common complications possible. They were given ample time to ask questions regarding the potential complications of a hip replacement. Following our discussion the patient provided their verbal and written consent to go forward with an elective total hip replacement. Operative Findings: Severe left hip posterior arthritis Description of Procedure: The patient was identified in the preoperative holding area and the correct hip was marked with my initials. I reviewed the procedure and consent with the patient. All of their questions were answered. The patient was then brought back into the operating room by anesthesia. While on the [facility] anesthesia was administered by the anesthesia team. Preoperative antibiotics and tranexamic acid were also given. After the patient was under anesthesia I examined their ankles to determine their preoperative leg length discrepancy. The skin over the anterior aspect of the hip was shaved to remove hair over the site of planned incision. Both feet and ankles were padded with webril and boots for the [place] were applied. The patient was then carefully transferred onto the [place] table. A perineal post was immediately placed. The arms were placed on arm holders and were well-padded. Both boots were secured to the spars on the [place] table. The patient was positioned so that the pelvis was centered over the post. Nonsterile drapes were applied. A timeout was performed identifying the correct patient, operative extremity, and procedure. At this point fluoroscopy was brought in to take preoperative images of the pelvis and operative hip. Using the standing AP pelvis from the office as a template, a comparable image was obtained with fluoroscopy. A metallic bar was used to create a bi-ischial line for use as a reference to leg length adjustments during the procedure. Global offset was also measured on both the operative and nonoperative leg. Fluoroscopy was then brought out and a pre-scrub using a chlorhexidine scrub brush was performed. The operative limb was then prepped and draped in the standard sterile fashion. An anterior longitudinal incision was made lateral and distal to the ASIS. The skin and subcutaneous tissues were incised sharply. The underlying tensor fascia was identified and incised in its midportion. The fascia was dissected free from the underlying muscle and the muscle belly was retracted. A blunt tipped cobra retractor was placed over the superior neck under the muscle fibers of the gluteus minimus. The deep enveloping fascia of the tensor was incised. The anterior leash of vessels were then identified and cauterized. The fascia between the rectus and the capsule was then incised and the pre-capsular fat was excised. A second Cobra was placed inferior to the neck. The interval between the rectus and iliocapsularis and the hip capsule was developed and a retractor was placed carefully over the anterior rim of the acetabulum. A T-shaped anterior capsulotomy was performed. The superior capsular leaflet was left in place in the inferior capsular flap was excised. The Cobra retractors were placed intracapsularly. We then made a femoral neck osteotomy according to preoperative and intraoperative templating and confirmed the level of the osteotomy using fluoroscopic imaging. The femoral head was removed, passed off to the back table, and sized. The superior capsular flap was excised. Retractors were placed circumferentially exposing the acetabulum. We then circumferentially debrided the acetabulum free of labrum and osteophytes. The pulvinar was removed to fully visualize the cotyloid fossa. We then sequentially reamed to achieve peripheral fit and excellent bleeding subchondral bone. The socket was thoroughly irrigated. The acetabular component was impacted into the appropriate position using fluoroscopy to guide version, inclination, and depth of insertion taking care to have a comparable image of the AP pelvis to the standing image taken in the office. An excellent press-fit was achieved and final position was confirmed using fluoroscopy. The press fit was augmented with bony cancellus dome screws. The liner was then impacted into the socket. Attention was then turned to the femur. The remnant dorsal lateral capsule was excised. The short external rotators were visible and protected. A bone hook was used to confirm appropriate translation of the trochanter away from the acetabulum. The leg was then extended and adducted and the bone hook was used to elevate the femur for broaching. A box osteotome and blunt tipped canal sound was then utilized to gain access to the femoral canal. We then sequentially broached the femur in appropriate anteversion until excellent torsional stability was achieved. The neck cut was brought flush to the trial broach with a calcar planar. A trial neck and head were then placed onto the broach and the hip was atraumatically reduced under direct visualization. External rotation to 90 was performed to assess stability. Fluoroscopy was brought in. An AP and lateral fluoroscopic image of the proximal femur was obtained to assess position and fill of the trial broach. An AP of the pelvis was then obtained and matched to the preoperative image taken. A bi-ischial bar was then placed and measurements were taken to assess changes in length and offset. The hip was then carefully dislocated, the proximal femur was exposed, and the trial implants were removed. The wound and proximal femur was thoroughly irrigated using sterile saline and pulsatile lavage. The final femo ral implant was dispensed and gently tapped into place generating an excellent press-fit. The trunnion was cleansed and the final head was tapped into place to engage the Gomez taper. The acetabulum was irrigated and visualized to be free of debris. The hip was carefully reduced. Stability was checked clinically with external rotation to 90 and there was no evidence of instability. Final fluoroscopic images were taken. The wound was then thoroughly irrigated and soaked with a dilute Betadine rinse for 3 minutes. 3 L of sterile saline was irrigated through the wound using pulsatile lavage. Local anesthetic cocktail was injected into the soft tissues around the surgical field. The wound was then closed in layers. A sterile dressing was placed over the surgical incision. The drapes were taken down and the patient was carefully transferred off of the [place] table. Following removal of the boots the leg lengths felt acceptable. The patient was then taken to recovery room having tolerated the procedure well. Rikki Pleitez PA-C was required as a skilled assistant production manager for patient positioning, surgical exposure, retraction, placement of implants, and closure of the surgical wound. PLAN: The patient can weight-bear as tolerated on the operative extremity. 2 doses of postoperative antibiotics. DVT prophylaxis with aspirin 81 mg twice a day based on preoperative risk stratification. Physical therapy for gait training.
--- NOTE | 2022-01-20 15:22 | XR ---
Fluoroscopy HISTORY: Anterior hip replacement 37 seconds fluoroscopy time supplied to the referring clinician. 6 intraoperative C-arm images docum ent the procedure. See dictated report from orthopedic surgery.
[2022-01-20] MEDS ORDERED: ONDANSETRON 4 MG/2 ML VIAL IVP ONE (15:45)
[2022-01-20] MEDS: LACTATED RINGERS 1,000 ML IV SCH (15:56)
[2022-01-20] MEDS ORDERED: hydrOXYzine HCL 25 MG TAB PO PRN (19:13)
[2022-01-20] MEDS ORDERED: SENNOSIDES-DOCUSATE SODIUM 1 EACH TAB PO SCH (21:00)
[2022-01-21] MEDS: ASPIRIN 81 MG PO SCH ×2 (00:17→07:47)
[2022-01-21] MEDS: LACTATED RINGERS 1,000 ML IV SCH ×2 (07:12→12:02)
[2022-01-21 07:46] VITALS: BP 125/78; PULSE 81; RESP 17; TEMP 97.8
--- NOTE | 2022-01-21 08:45 | P.DS ---
Providers Expected date of discharge: 01/21/22 Attending physician: Gerson Bolaños Consults: 01/20/22 15:07 Consult Physician Routine Consulting Provider: Viki Barros Consult Reason/Comments: medical management Do you want consulting provider notified?: Yes Primary care physician: Kianna Nichole [facility] Course: This is a 66-year-old male who was last seen in our office with complaint of con tinued left hip pain. The patient has a known history of degenerative arthritis of the left hip and presents to discuss surgical options. After discussion and consideration the patient elects to proceed with a direct anterior total left hip arthroplasty. He is seen preoperatively by his PCP Dr. Nichole and cleared for surgery. The patient is admitted to [facility] for total left hip arthroplasty. The procedure is performed without complication or sequelae. The patient is doing well postoperatively. Vital signs and postoperative labs are stable. Patient is seen and examined bedside this morning with Dr. Bolaños. He states the pain in his left hip is well controlled at this time. He is ambulating with a walker with minimal assistance. He has been evaluated by physical therapy this morning and cleared for discharge from their standpoint. Patient has no complaints or concerns. On examination, patient is sitting up in bed in no apparent distress. He is alert and oriented 3. On inspection of the left hip, there is a clean, dry, intact operative dressing in place with no bleeding or drainage through the dressing. There is mild swelling of the thigh, the thigh soft and compressible. Motor and sensory function is intact of the left lower extremity. Femoral nerve function is intact. Left lower extremity warm and well perfused with brisk capillary refill distally. Calf is soft and nontender to palpation. The patient is discharged to home today in good condition, pending medical clearance. Please see discharge orders. Please refer to the med rec for accurate list of medications. Plan - Discharge Summary Discharge Rx Participant: Yes New Discharge Prescriptions: New Docusate [Colace] 100 mg PO BID #60 capsule Doxycycline Monohydrate 100 mg PO BID 14 Days #28 cap HYDROcodone/APAP 5-325MG [Amelia 5-325] 1 - 2 tab PO Q6HR PRN 7 Days #32 tab PRN Reason: Pain Omeprazole 40 mg PO DAILY 30 Days #30 cap Aspirin 81 mg PO BID 30 Days #60 tab Diclofenac Sodium [Voltaren] 75 mg PO BID 30 Days #60 tab No Action Atorvastatin [Lipitor] 40 mg PO DAILY Cholecalciferol [Vitamin D3 (25 Mcg = 1000 Iu)] 25 mcg PO DAILY Aspirin 81 mg PO DAILY ramipriL [Ramipril] 2.5 mg PO QAM hydrOXYzine HCL [Atarax] 25 mg PO TID PRN PRN Reason: hives atenoloL [Tenormin] 12.5 mg PO QAM Cyanocobalamin (Vitamin B-12) [Vitamin B-12] 1,000 mcg PO DAILY Discharge Medication List Aspirin 81 mg PO DAILY 08/18/21 [History] Atorvastatin [Lipitor] 40 mg PO DAILY 08/18/21 [History] Cholecalciferol [Vitamin D3 (25 Mcg = 1000 Iu)] 25 mcg PO DAILY 08/18/21 [History] Cyanocobalamin (Vitamin B-12) [Vitamin B-12] 1,000 mcg PO DAILY 08/18/21 [History] atenoloL [Tenormin] 12.5 mg PO QAM 08/18/21 [History] hydrOXYzine HCL [Atarax] 25 mg PO TID PRN 08/18/21 [History] ramipriL [Ramipril] 2.5 mg PO QAM 08/18/21 [History] Aspirin 81 mg PO BID 30 Days #60 tab 01/21/22 [Rx] Diclofenac Sodium [Voltaren] 75 mg PO BID 30 Days #60 tab 01/21/22 [Rx] Docusate [Colace] 100 mg PO BID #60 capsule 01/21/22 [Rx] Doxycycline Monohydrate 100 mg PO BID 14 Days #28 cap 01/21/22 [Rx] HYDROcodone/APAP 5-325MG [Amelia 5-325] 1 - 2 tab PO Q6HR PRN 7 Days #32 tab 01/21/22 [Rx] Omeprazole 40 mg PO DAILY 30 Days #30 cap 01/21/22 [Rx] Follow up Appointment(s)/Referral(s): [facility], [NON-STAFF] - 1-2 Days ([facility] will call you to schedule your in home physical therapy visits. ) Gerson Bolaños MD [Medical Doctor] - 2 Weeks Discharge Disposition: HOME WITH HOME HEALTH SERVICES
[2022-01-21] MEDS ORDERED: CHOLECALCIFEROL 25 MCG (1000 IU) TABLET PO SCH (09:00)
[2022-01-21] MEDS ORDERED: ATORVASTATIN 40 MG TAB PO SCH (09:00)
[2022-01-21] MEDS ORDERED: ASPIRIN 81 MG PO SCH (09:00)
[2022-01-21] MEDS ORDERED: lisinopriL 10 MG TAB PO SCH (09:00)
[2022-01-21] MEDS ORDERED: CYANOCOBALAMIN 500 MCG TAB PO SCH (09:00)
[2022-01-21 10:58] LABS: Basophils # (A) 0.03 X 10*3/uL (0.00-0.10); Basophils % (A) 0.3 %; Eosinophils # (A) 0.02 X 10*3/uL (0.04-0.35); Eosinophils % (A) 0.2 %; HGB 12.5 g/dL (13.0-17.0); Immature Grans, Automated 0.7 %; Lymphocytes # (A) 1.45 X 10*3/uL (0.90-5.00); Lymphocytes % (A) 12.1 %; MCHC 33.8 g/dL (32.0-37.0); MCV 88.7 fL (80.0-97.0); Mean Platelet Volume 10.4 fL (9.5-12.2); Monocytes # (A) 1.23 X 10*3/uL (0.20-1.00); Monocytes % (A) 10.3 %; NRBC Per 100 WBC 0 /100 WBCS (0.0-0.0); Neutrophils # (A) 9.18 X 10*3/uL (1.80-7.70); Neutrophils % (A) 76.4 %; Platelet Count 191 X 10*3/uL (140-440); RBC 4.17 X 10*6/uL (4.40-5.60); WBC 11.99 X 10*3/uL (4.50-10.00)
[2022-01-21 11:08] LABS: African American GFR (CKD) 103.5 (60.0-200.0); Albumin 3.3 g/dL (3.8-4.9); Albumin/Globulin Ratio 1.65 (1.60-3.17); Anion Gap 10.2 mmol/L (10.00-18.00); BUN/Creat Ratio 13.67 Ratio (12.00-20.00); Blood Urea Nitrogen 12.3 mg/dL (9.0-27.0); Calcium 8.4 mg/dL (8.7-10.3); Carbon Dioxide 24.8 mmol/L (20.0-27.5); Non-African American GFR(CKD) 89.3 (60.0-200.0); Total Bilirubin 0.6 mg/dL (0.30-1.20); Total Protein 5.3 g/dL (6.2-8.2)
== END 2022-01-21 13:09 | disposition home health service (06) ==
LOC: OR 11:09 → 4SSUR 14:55 → OR 01-21 13:09
PROVIDERS: ATTEND Orthopaedic Surgery
DX: M16.12 Unilateral primary osteoarthritis, left hip (principal); G89.18 Other acute postprocedural pain; I11.9 Hypertensive heart disease without heart failure; E78.5 Hyperlipidemia, unspecified; G35 Multiple sclerosis; R26.81 Unsteadiness on feet; Z96.641 Presence of right artificial hip joint; I25.10 Atherosclerotic heart disease of native coronary artery without angina pectoris; Z87.891 Personal history of nicotine dependence; Z79.890 Hormone replacement therapy; Z79.899 Other long term (current) drug therapy
CPT/HCPCS: 27130; 97161; 64999; 86900; 86901; 80053; 85025; 86850; 73501; C1776; J2250; J1100; J2710; J0690 ×2; J2405; J3010; J1170 ×2; J2795; J1885; J2704

== ENCOUNTER 2022-02-04 14:32 | Emergency (ER) | payer MEDICARE ==
[2022-02-04 14:37] VITALS: TEMP 98
--- NOTE | 2022-02-04 14:57 | ED ---
URI HPI - General Chief Complaint: Upper Respiratory Infection Stated Complaint: Congestion,fever Time Seen by Provider: 02/04/22 14:43 Source: patient, RN notes reviewed, old records reviewed Mode of arrival: ambulatory Limitations: no limitations - History of Present Illness Initial Comments: Well-appearing 66-year-old male presents to the emergency room with complaints of cough and congestion with fever since Tuesday. States he did take a couple Covid tests that were negative. He states did undergo a left hip surgery with Dr. Bolaños 2 weeks ago and has had no complications. He is concerned for viral infection. His son is in medicine and asked if we would please check a CBC along with RSV coronavirus and influenza swabs. MD Complaint: fever, cough, nasal congestion -: days(s) (5) Severity scale (1-10): 0 Associated Symptoms: fever, chills, nasal congestion, cough - Related Data Home Medications Medication Instructions Recorded Confirmed Aspirin 81 mg PO DAILY 08/18/21 01/20/22 Atorvastatin [Lipitor] 40 mg PO DAILY 08/18/21 01/20/22 Cholecalciferol [Vitamin D3 (25 25 mcg PO DAILY 08/18/21 01/20/22 Mcg = 1000 Iu)] Cyanocobalamin (Vitamin B-12) 1,000 mcg PO DAILY 08/18/21 01/20/22 [Vitamin B-12] atenoloL [Tenormin] 12.5 mg PO QAM 08/18/21 01/20/22 hydrOXYzine HCL [Atarax] 25 mg PO TID PRN 08/18/21 01/20/22 ramipriL [Ramipril] 2.5 mg PO QAM 08/18/21 01/20/22 Previous Rx's Medication Instructions Recorded Aspirin 81 mg PO BID 30 Days #60 tab 01/21/22 Diclofenac Sodium [Voltaren] 75 mg PO BID 30 Days #60 tab 01/21/22 Docusate [Colace] 100 mg PO BID #60 capsule 01/21/22 Doxycycline Monohydrate 100 mg PO BID 14 Days #28 cap 01/21/22 HYDROcodone/APAP 5-325MG [[place] 1 - 2 tab PO Q6HR PRN 7 Days #32 01/21/22 5-325] tab Omeprazole 40 mg PO DAILY 30 Days #30 cap 01/21/22 Allergies Allergy/AdvReac Type Severity Reaction Status Date / Time glatiramer (copolymer 1) Allergy Anaphylaxis Verified 02/04/22 14:37 [From Copaxone] Review of Systems ROS Statement: Those systems with pertinent positive or pertinent negative responses have been documented in the HPI. ROS Other: All systems not noted in ROS Statement are negative. 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 Past Anesthesia/Blood Transfusion Reactions: No Reported Reaction Date of Last Stent Placement:: 2000 Past Psychological History: No Psychological Hx Reported Smoking Status: Former smoker Past Alcohol Use History: Rare Past Drug Use History: Marijuana - Past Family History Mother Family Medical History: Cancer Additional Family Medical History / Comment(s): stomach cancer Father Family Medical History: Deep Vein Thrombosis (DVT) General Exam Limitations: no limitations General appearance: alert, in no apparent distress Head exam: Present: atraumatic, normocephalic Eye exam: Absent: scleral icterus, conjunctival injection, periorbital swelling, periorbital tenderness ENT exam: Present: normal exam, mucous membranes moist Expanded Mouth exam: Present: tongue normal, tongue elevation. Absent: drooling, trismus, muffled voice Throat exam: negative: tonsillar erythema, tonsillomegaly, R peritonsillar mass, L peritonsillar mass Neck exam: Present: full ROM. Absent: tenderness, meningismus, lymphadenopathy Respiratory exam: Present: normal lung sounds bilaterally. Absent: respiratory distress, wheezes, rales, rhonchi, stridor, chest wall tenderness, accessory muscle use Cardiovascular Exam: Present: regular rate GI/Abdominal exam: Present: soft Left Hip exam: Present: laceration (Surgical site dry and intact no sign of drainage or erythema). Absent: tenderness, swelling, erythema, external rotation, agriculture internship al rotation, pelvic stability Neurovascular tendon exam: Present: no vascular compromise. Absent: abnormal cap refill, extremity cold to touch, pallor Back exam: Present: full ROM. Absent: tenderness, CVA tenderness (R), CVA tenderness (L), rash noted Neurological exam: Present: alert, oriented X3 Psychiatric exam: Present: normal affect, normal mood Skin exam: Present: warm, dry, normal color. Absent: cyanosis, diaphoretic, petechiae, pallor Course Vital Signs 02/04/22 02/04/22 14:35 16:58 Temperature 98 F Pulse Rate 93 80 Respiratory 16 18 Rate Blood Pressure 122/74 124/78 O2 Sat by Pulse 99 100 Oximetry Medical Decision Making - Medical Decision Making Chest x-ray shows no effusion, no consolidation. Cardiac silhouette within normal limits. Some mild hilar adenopathy. Coronavirus influenza and RSV swabs are negative. Labs show no evidence of leukocytosis. Electrolytes are unremarkable. Patient presents well appearing, is in no respiratory distress, vital signs are stable. Afebrile. Lung sounds are clear to auscultation. He was directed to follow up with his primary care doctor within the next week, return to the emergency room with any new or concerning symptoms. He is agreeable to this plan of care. Case was discussed with Dr. Neal. - Lab Data Result diagrams: 02/04/22 15:09 02/04/22 15:09 Lab Results 02/04/22 02/04/22 02/04/22 Range/Units 15:09 15:09 15:09 WBC 8.0 (3.8-10.6) k/uL RBC 4.27 L (4.30-5.90) m/uL Hgb 13.2 (13.0-17.5) gm/dL Hct 37.4 L (39.0-53.0) % MCV 87.6 (80.0-100.0) fL MCH 30.8 (25.0-35.0) pg MCHC 35.1 (31.0-37.0) g/dL RDW 14.6 (11.5-15.5) % Plt Count 162 (150-450) k/uL MPV 8.5 Neutrophils % 77 % Lymphocytes % 6 % Monocytes % 6 % Eosinophils % 8 % Basophils % 1 % Neutrophils # 6.1 (1.3-7.7) k/uL Lymphocytes # 0.5 L (1.0-4.8) k/uL Monocytes # 0.5 (0-1.0) k/uL Eosinophils # 0.6 (0-0.7) k/uL Basophils # 0.1 (0-0.2) k/uL Sodium 140 (137-145) mmol/L Potassium 3.5 (3.5-5.1) mmol/L Chloride 106 (98-107) mmol/L Carbon Dioxide 19 L (22-30) mmol/L Anion Gap 15 mmol/L BUN 20 (9-20) mg/dL Creatinine 0.72 (0.66-1.25) mg/dL Est GFR (CKD-EPI)AfAm >90 (>60 ml/min/1.73 sqM) Est GFR (CKD-EPI)NonAf >90 (>60 ml/min/1.73 sqM) Glucose 126 H (74-99) mg/dL Calcium 8.5 (8.4-10.2) mg/dL Influenza Type A (PCR) Not Detected (Not Detectd) Influenza Type B (PCR) Not Detected (Not Detectd) RSV (PCR) Not Detected (Not Detectd) SARS-CoV-2 (PCR) Not Detected (Not Detectd) Disposition Clinical Impression: Cough Disposition: HOME SELF-CARE Condition: Good Instructions (If sedation given, give patient instructions): Upper Respiratory Infection (ED) Additional Instructions: Coronavirus, influenza and RSV swabs are negative. Chest x-ray is negative. There is no evidence of leukocytosis. Lung sounds are clear to auscultation. Patient is well-appearing left hip wound is healing with no signs of redness or exudate. Patient denies any pain. This is likely a viral illness that developed his primary care doctor case was discussed with Dr. Bain. Patient is agreeable to this plan of care. Is patient prescribed a controlled substance at d/c from ED?: No Referrals: Kianna Nichole MD [Primary Care Provider] - 1-2 days Time of Disposition: 16:39
[2022-02-04 15:27] LABS: African American GFR (CKD) >90 (>60 ml/min/1.73 sqM); Anion Gap 15 mmol/L; Blood Urea Nitrogen 20 mg/dL (9-20); Calcium 8.5 mg/dL (8.4-10.2); Carbon Dioxide 19 mmol/L (22-30); Chloride 106 mmol/L (98-107); Glucose 126 mg/dL (74-99); Non-African American GFR(CKD) >90 (>60 ml/min/1.73 sqM); Potassium 3.5 mmol/L (3.5-5.1); Sodium 140 mmol/L (137-145)
[2022-02-04 15:57] LABS: Basophils # (A) 0.1 k/uL (0-0.2); Basophils % (A) 1 %; Eosinophils # (A) 0.6 k/uL (0-0.7); Eosinophils % (A) 8 %; HCT 37.4 % (39.0-53.0); HGB 13.2 gm/dL (13.0-17.5); Lymphocytes # (A) 0.5 k/uL (1.0-4.8); Lymphocytes % (A) 6 %; MCH 30.8 pg (25.0-35.0); MCHC 35.1 g/dL (31.0-37.0); MCV 87.6 fL (80.0-100.0); Mean Platelet Volume 8.5; Monocytes # (A) 0.5 k/uL (0-1.0); Monocytes % (A) 6 %; Neutrophils # (A) 6.1 k/uL (1.3-7.7); Neutrophils % (A) 77 %; Platelet Count 162 k/uL (150-450); RBC 4.27 m/uL (4.30-5.90); RDW 14.6 % (11.5-15.5)
--- NOTE | 2022-02-04 16:09 | XR ---
EXAMINATION TYPE: XR chest 2V DATE OF EXAM: 02/04/2022 COMPARISON: 11/17/2010 HISTORY: Fever and cough, congestion TECHNIQUE: Frontal and lateral views of the chest are obtained. FINDINGS: There is no focal air space opacity, pleural effusion, or pneumothorax seen. The cardiac silhouette size is within normal limits, question some mild hilar adenopathy. Coronary artery calcifi cations are present. The osseous structures are intact, there is thoracic spondylosis, arthropathy i s present within the shoulders. IMPRESSION: Coronary artery disease. Difficult to exclude hilar adenopathy, consider follow-up
[2022-02-04 16:59] VITALS: BP 124/78; PULSE 80; RESP 18
== END 2022-02-04 17:00 | disposition home or self-care (01) ==
LOC: EC 14:32
DX: R05.9 Cough, unspecified (principal); I25.10 Atherosclerotic heart disease of native coronary artery without angina pectoris; Z87.891 Personal history of nicotine dependence; Z20.822 Contact with and (suspected) exposure to COVID-19; Z88.6 Allergy status to analgesic agent
CPT/HCPCS: 36415; 71046; 80048; 85025; 87636; 96361; 96374; 99283; 99285

== ENCOUNTER → 2022-06-29 | Outpatient (CLI) | payer MEDICARE ==
[2022-06-29 11:03] LABS: Partial Thromboplastin Time 22.3 sec (22.0-30.0); Prothrombin Time 10.1 sec (9.0-12.0)
[2022-06-29 15:17] LABS: HCT 49.5 % (39.6-50.0); HGB 15.8 g/dL (13.0-17.0); MCH 28.4 pg (27.0-32.0); MCHC 31.9 g/dL (32.0-37.0); Mean Platelet Volume 10.3 fL (9.5-12.2); NRBC Per 100 WBC 0 /100 WBCS (0.0-0.0); Platelet Count 209 X 10*3/uL (140-440); RBC 5.56 X 10*6/uL (4.40-5.60); RDW 17.4 % (11.5-14.5); WBC 10.53 X 10*3/uL (4.50-10.00)
[2022-06-29 17:19] LABS: ALT 21 U/L (10-49); AST 17 U/L (14-35); African American GFR (CKD) 102.8 (60.0-200.0); Albumin 4.6 g/dL (3.8-4.9); Alkaline Phosphatase 159 U/L (41-126); BUN/Creat Ratio 12.44 Ratio (12.00-20.00); Blood Urea Nitrogen 11.2 mg/dL (9.0-27.0); Calcium 10.1 mg/dL (8.7-10.3); Chloride 105 mmol/L (96-109); Chol/HDL Ratio 3.21 Ratio; Globulin 2.7 g/dL (1.6-3.3); Glucose 108 mg/dL (70-110); LDL Cholesterol,Calculated 99.8 mg/dL (0.0-131.0); Non-African American GFR(CKD) 88.7 (60.0-200.0); Potassium 4.8 mmol/L (3.5-5.5); Sodium 144 mmol/L (135-145); Total Protein 7.3 g/dL (6.2-8.2); VLDL Calculation 16.56 mg/dL (5.00-40.00)
[2022-06-29 20:15] LABS: Appearance,Urine Clear (Clear); Bilirubin,Urine Negative (Negative); Blood,Urine Negative (Negative); Color,Urine Yellow (Yellow); Ketones,Urine Negative (Negative); Nitrite,Urine Negative (Negative); Urobilinogen,Urine 0.2 (0.2,1.0)
== END | disposition home or self-care (01) ==
LOC: LABWHC1 09:27
PROVIDERS: ATTEND Internal Medicine Cardiovascular Disease
DX: Z01.812 Encounter for preprocedural laboratory examination (principal); E78.2 Mixed hyperlipidemia
CPT/HCPCS: 36415; 80053; 80061; 81003; 85027; 85610; 85730; 87070

== ENCOUNTER → 2022-06-29 | Outpatient (CLI) | payer MEDICARE ==
--- NOTE | 2022-06-29 10:06 | CT ---
EXAMINATION TYPE: CT left knee - [facility] Protocol DATE OF EXAM: 06/29/2022 COMPARISON: None HISTORY: Left knee [facility] CT DLP: 759 mGycm Axial, sagittal and coronal images are obtained. Postsurgical changes are seen involving the bilateral hip. There is severe arthropathy of the tricompartment joint space with hypertrophic spurring. Findings co mpatible with severe osteoarthritis. There are well corticated ossicles along the posterior medial ma rgin of the popliteal fossa of the left knee. Vascular calcifications are noted. Well-corticated ossi cles are seen in the anterior to the joint space along the central aspect of the tibia could be relat ed to prior trauma. Near the region of Hoffa's fat pad. Additional well-corticated ossicle along the upper margin of the patella. There is soft tissue edema and suspect a small amount of joint fluid. Images of the ankles demonstrate ankle mortise to be preserved with well corticated densities adjacen t to the medial malleolus on the right just prior trauma. No obvious erosive change or acute fracture . IMPRESSION: 1. Severe osteoarthritis of the tricompartment space of the left knee with numerous well-corticated s oft tissue ossifications.
== END | disposition home or self-care (01) ==
LOC: RADCTMAIN 09:00
PROVIDERS: ATTEND Orthopaedic Surgery
DX: M17.12 Unilateral primary osteoarthritis, left knee (principal); M21.062 Valgus deformity, not elsewhere classified, left knee; Z47.1 Aftercare following joint replacement surgery; Z96.642 Presence of left artificial hip joint

== ENCOUNTER → 2022-06-29 | Outpatient (CLI) | payer MEDICARE | END | disposition home or self-care (01) | LOC: LABPAT 09:28 | PROVIDERS: ATTEND Orthopaedic Surgery | DX: Z53.9 Procedure and treatment not carried out, unspecified reason (principal) ==

== ENCOUNTER 2022-07-30 08:26 | Day surgery (SDC) | payer MEDICARE ==
[~2022-07-30 08:26] MED LIST changes: +DEXAMETHASONE SOD PHOSPHATE 4 MG/ML 1 ML VIAL IV ONE; +ONDANSETRON 4 MG/2 ML VIAL IVP ONE; +ROPIVACAINE 246.25 MG, EPINEPHrine 0.5 MG, KETOROLAC (30 mg/mL) 30 MG, cloNIDine HCL/PF... MISCELLANE PRN; -ROPIVACAINE/EPI/CLONIDINE/KET 50 ML SYRINGE MISCELLANE PRN; +TRANEXAMIC ACID IN NACL,ISO-OS 1,000 MG in SALINE 1 100ML.BAG IV PRN
[2022-07-30] MEDS ORDERED: fentaNYL (PF) 50 MCG/ML 2 ML AMP IVP ONE (10:45)
[2022-07-30] MEDS ORDERED: PROPOFOL 10 MG/ML 20 ML VIAL IV ONE (11:47)
[2022-07-30] MEDS ORDERED: MIDAZOLAM 2 MG/2 ML VIAL ONE (11:47)
[2022-07-30] MEDS ORDERED: HYDROmorphone (PF) 1 MG/ML ONE (11:47)
[2022-07-30] MEDS ORDERED: fentaNYL (PF) 50 MCG/ML 2 ML AMP ONE (11:47)
[2022-07-30] MEDS ORDERED: ROPIVACAINE 5 MG/ML 30 ML VIAL ONE (11:47)
[2022-07-30] MEDS ORDERED: LIDOCAINE 2% INJ 20 MG/ML (2 ML VIAL) ONE (11:47)
[2022-07-30] MEDS ORDERED: TRANEXAMIC ACID IN NACL,ISO-OS 1,000 MG/100 ML BAG ONE (11:47)
--- NOTE | 2022-07-30 12:08 | P.ANPRN ---
Procedure Note - Anesthesia - Nerve Block Performed Left Adductor Canal Single Time Out Performed: Yes (1044) Date of Procedure: 07/30/22 Procedure Start Time: 10:45 Procedure Stop Time: 10:48 Location of Patient: PreOp Indication: Acute Post-Operative Pain, Requested by Surgeon Specifically requested for management of pain by DrJess: Gerson Bolaños Sedation Type: Sedate with meaningful contact maintained Preparation: Sterile Prep Position: Supine Catheter: None Needle Types: Pajunk Needle Gauge: 21 Ultrasound used to visualize needle placement: Yes Ultrasound used to observe medication spread: Yes Injectate: 0.5% Ropivacaine (see comment for volume) (15cc + 5cc nacl pf) Blood Aspirated: No Pain Paresthesia on Injection Noted: No Resistance on Injection: Normal Image Stored and Saved: Yes Events: Uneventful and Well Tolerated
--- NOTE | 2022-07-30 12:10 | P.ANPRN ---
Procedure Note - Anesthesia - Nerve Block Performed Left iPack Single Time Out Performed: Yes (1044) Date of Procedure: 07/30/22 Procedure Start Time: 10:49 Procedure Stop Time: 10:51 Location of Patient: PreOp Indication: Acute Post-Operative Pain, Requested by Surgeon Specifically requested for management of pain by DrJess: Gerson Bolaños Sedation Type: Sedate with meaningful contact maintained Preparation: Sterile Prep Position: Supine Catheter: None Needle Types: Pajunk Needle Gauge: 21 Ultrasound used to visualize needle placement: Yes Ultrasound used to observe medication spread: Yes Injectate: 0.5% Ropivacaine (see comment for volume) (15cc + 5cc nacl pf) Blood Aspirated: No Pain Paresthesia on Injection Noted: No Resistance on Injection: Normal Image Stored and Saved: Yes Events: Uneventful and Well Tolerated
[2022-07-30] MEDS: ROPIVACAINE/EPI/CLONIDINE/KET 50 ML SYRINGE MISCELLANE PRN ×2 (12:17→14:05)
[2022-07-30] MEDS ORDERED: LACTATED RINGERS 1,000 ML IV ONE (12:42)
[2022-07-30] MEDS ORDERED: diphenhydrAMINE 50 MG/ML 1 ML VIAL IVP ONE (15:00)
[2022-07-30] MEDS ORDERED: NALOXONE 0.4 MG/ML 1 ML VIAL IV PRN (15:09)
[2022-07-30] MEDS ORDERED: ONDANSETRON 4 MG/2 ML VIAL IVP PRN (15:09)
[2022-07-30] MEDS ORDERED: hydrOXYzine pamoate 25 MG CAP PO PRN (15:09)
[2022-07-30] MEDS ORDERED: HYDROmorphone 0.5 MG/0.5 ML SYRINGE IVP PRN ×3 (15:09)
--- NOTE | 2022-07-30 15:11 | P.OP ---
Date of Procedure: 07/30/22 Preoperative Diagnosis: 1. Severe left valgus knee arthritis 2. Prior bilateral total hip replacements Postoperative Diagnosis: Same Procedure(s) Performed: Left total knee arthroplasty Implants: 1. Gianna Triathlon PS Femur Size #6 2. Ord Triathlon [place] Tibial Base Size #6 3. Gianna Triathlon PS poly Size #6 4. Ord Triathlon all poly patella, Size #32 Anesthesia: GERRYA, regional Surgeon: Gerson Bolaños Tire Finisher #1: Rikki Pleitez Estimated Blood Loss (ml): 100 IV fluids (ml): 1,200 Pathology: none sent Condition: stable Disposition: PACU Indications for Procedure: I met with the patient preoperatively in the office setting and discussed treatment of their symptomatic knee arthritis. They failed a long course of nonsurgical treatment and elected to proceed with an elective total knee replacement. I discussed the potential risks and complications at length and gave them ample time to ask questions. Risks discussed included: risks from anesthesia, superficial site surgical infection, acute and/or chronic periprosthetic joint infection, delayed wound healing, drainage, wound necrosis, instability, stiffness, stiffness requiring manipulation and/or revision surgery , damage to local blood vessels or nerves, aseptic loosening of the implants, extensor mechanism issues including disruption, patellar maltracking, avascular necrosis etc., continued or worsened knee pain, generalized dissatisfaction with surgical outcome, need for revision surgery, an inability to regain preinjury level of function, DVT, PE, other medical complications, and possibly loss of life or limb. We also discussed the specific risks with a valgus knee particularly postoperative foot drop from a peroneal nerve palsy and/or patellofemoral maltracking. The patient voiced their understanding that while these are the most common complications other less common complications are possible. They provided both their verbal and written consent to go forward with surgery. Operative Findings: After the knee had been registered with the [email or web address] robot his preoperative deformity was 8 of valgus and a 10 flexion contracture. The patient's extension gap was preferred first with a distal femur and proximal tibial bone cut followed by a full lateral release until an 18 mm spacer block could be placed. At this point the knee was in 0 of valgus and was fully straight. I then brought the knee into flexion and balance the flexion space to match the extension space. Postoperatively the patient's leg was straight and well balanced. Description of Procedure: The patient was identified in preoperative holding and the correct operative extremity was verified and marked with a marker. I reviewed the consent form with the patient at length. All of their questions were answered. The patient was given a block by anesthesia. They were then brought back to the operating room. They were transferred onto the operating room table where a general anesthetic, preoperative antibiotics, and tranexamic acid were administered by anesthesia. A tourniquet was applied to the proximal aspect of the operative extremity. The contralateral extremity was padded under the heel and secured to the operating room table with a nonsterile blue towel and tape. The ipsilateral arm was carefully draped across the patient's chest and secured with a pillow and foam. A post was applied over the lateral aspect of the ipsilateral thigh and a bolster was placed under the ipsilateral foot. I verified that the operative extremity was stable and the knee was flexed to 90. The operative extremity was then placed in a leg nielsen, nonsterile drapes were applied, and the extremity was prepped and draped sterilely in the standard sterile fashion. Prior to starting surgery timeout was performed identifying the correct patient, operative extremity, and procedure. The leg was then elevated, exsanguinated with an Esmarch bandage, and the tourniquet was inflated. An anterior midline incision was made sharply with a scalpel. Once I had dissected deep to the superficial fascial layer medial and lateral flaps were elevated. A medial parapatellar arthrotomy was created. Upon opening the knee joint there were diffuse arthritic changes in all 3 compartments. The anterior horn of the medial meniscus were sharply released and a medial release was performed around the posterior medial corner of the knee to facilitate retractor placement. The fat pad was excised with electrocautery. The patella was found to be severely arthritic and a provisional cut was made with a sagittal saw to facilitate mobilization of the extensor mechanism during the procedure. Remnants of the ACL and PCL were then excised from the notch. 4 mm pins were then placed within the incision in the medial distal femur and proximal tibia. Arrays were applied to the pins and I verified they were completely tightened. The knee was then registered with the [email or web address] robot and manipulations in implant position were made to balance the knee and opitmize implant position. Using the [email or web address] robotic saw all cuts were made in accordance with our plan. After all bony fragments had been removed the cuts were verified with the planar probe. The tibia was then subluxed forward and sized. The knee was brought into flexion and a lamina behavior interventionist was placed to allow removal of the meniscal remnants both medially and laterally as well as posterior osteophytes. Local anesthetic was then infiltrated around the joint capsule. Trial implants were then placed within the knee. Range of motion and collateral ligament tension was then evaluated. Adjustments in implant size and position were then made accordingly. Once the knee was felt to be appropriately balanced the Troy pins were removed. The patella was then recut, sized, and punched. A trial patellar button was then placed. With the trial components in place, the patella tracked midline. The femur was then drilled and the trial component removed. The trial tibial component was then appropriately rotated, pinned, and prepared for the keel. All trial components were then removed from the knee. The knee was thoroughly irrigated with pulsatile lavage. Cement was prepared via vacuum mixing in a bowl on the back table. I then hand pressurized cement into the femur and tibia and placed the implants beginning with the tibial base tray and poly liner, femoral component, and finally the patellar button. All extruded cement was removed including from the pin sites. Once the cement had hardened the knee was evaluated one final time with the final polyethylene liner in place. The knee had full extension and flexion and felt stable to varus and valgus stress throughout the arc of motion. The tourniquet was released and with the tourniquet down the patella tracked midline. All bleeders were controlled with electrocautery. The knee was then soaked for 3 minutes with a dilute Betadine soak. The knee was thoroughly irrigated using 3 L of sterile saline and pulsatile lavage. A deep drain was placed. The extensor mechanism was then reapproximated using pop off Vicryl sutures followed by a running barbed suture. The knee was then closed in layers with a 0 strata fix for the deep fascial layer, 2-0 strata fix for the superficial subcutaneous layer and Monocryl and Steri-Strips for the skin. A sterile dressing and drain sponge were applied. I verified that all instrument, sponge, and sharp counts were correct. The patient was then transferred off the operating room table, extubated, and brought to recovery having tolerated the procedure well. Rikki Pleitez PA-C was required as a skilled residential living assistant due to the complexity of the procedure for patient positioning, draping, retraction, placement of hardware, and closure of wound. PLAN: The patient can weight-bear as tolerated on the operative extremity. DVT prophylaxis with aspirin 81 mg twice a day based on preoperative risk stratification. Follow-up in the office in 2 weeks for wound check and x-rays of the knee including an AP and lateral.
[2022-07-30] MEDS: LACTATED RINGERS 1,000 ML IV SCH ×3 (15:35→21:06)
--- NOTE | 2022-07-30 15:56 | XR ---
EXAMINATION TYPE: XR knee limited LT DATE OF EXAM: 07/30/2022 CLINICAL HISTORY: Left knee pain and arthritis status post total knee replacement. TECHNIQUE: Portable AP and crosstable lateral views of the left knee are obtained immediately postop eratively. COMPARISON: CT left knee June 29, 2022 FINDINGS: Metallic hardware from total left knee arthroplasty is seen and appears satisfactory in al ignment and position. There is evidence of recent surgery with diffuse subcutaneous gas , soft tissu e swelling, and percutaneous suprapatellar surgical drain noted. IMPRESSION: METALLIC HARDWARE FROM TOTAL LEFT KNEE ARTHROPLASTY IS SATISFACTORY IN ALIGNMENT.
[2022-07-30] MEDS ORDERED: hydrOXYzine HCL 25 MG TAB PO PRN (16:30)
[2022-07-30] MEDS: ATORVASTATIN 40 MG TAB PO SCH (16:56)
[2022-07-30] MEDS: ASPIRIN 81 MG PO SCH (21:06)
[2022-07-30] MEDS: HYDROcodone/APAP 5-325MG 1 EACH TAB PO PRN (21:06)
[2022-07-30] MEDS: SENNOSIDES-DOCUSATE SODIUM 1 EACH TAB PO SCH (21:06)
[2022-07-31] MEDS: HYDROcodone/APAP 5-325MG 1 EACH TAB PO PRN ×3 (04:51→20:40)
--- NOTE | 2022-07-31 08:52 | P.PN ---
Subjective Progress Note Date: 07/31/22 Doing well this morning. The pain in his knee is controlled. He is been up several times to the bathroom without difficulty Objective - Vital Signs Vital signs: Vital Signs Temp 98.2 F 07/31/22 07:45 Pulse 61 07/31/22 07:45 Resp 18 07/31/22 07:45 BP 111/70 07/31/22 07:45 Pulse Ox 96 07/31/22 07:55 FiO2 Intake & Output 07/30/22 07/31/22 07/31/22 18:59 06:59 18:59 Intake Total 3930 2060 Output Total 100 260 Balance 3830 1800 Weight 89.7 kg Intake: IV 3450 Intake, IV Titration 1100 Amount Lactated Ringers 1,000 ml 1000 @ 100 mls/hr IV .Q10H [facility] Rx#:[id number] ceFAZolin 2 gm In Sodium 100 Chloride 0.9% 50 ml @ 100 mls/hr IVPB ONCE PRN Rx# :[id number] Oral 480 960 Output: Drainage 260 Left Knee 260 Urine 0 Estimated Blood Loss 100 Other: Voiding Method Toilet Urinal - Exam A focused exam of the left lower extremity was conducted. On inspection there is an intact dressing with no drainage. His drain was in place and easily removed. There is mild swelling over the knee. Peroneal nerve function is intact and is able to actively dorsiflex his ankle and toes. Sensation is intact globally throughout the foot Assessment and Plan Assessment: Postoperative day #1 status post left valgus total knee replacement Plan: 1. Weightbearing as tolerated left lower extremity, with assistance 2. 2 doses of postoperative antibiotics 3. DVT prophylaxis with aspirin 81 mg 4. Drain pulled this morning 5. Internal medicine for medical management 6. Disposition: Patient would like to stay another night due to concerns about mobilization and pain having also recently undergone bilateral hip replacement. He will work with physical therapy and plan for discharge home tomorrow.
[2022-07-31] MEDS ORDERED: ASPIRIN 81 MG PO SCH (09:00)
[2022-07-31 09:26] LABS: Basophils # (A) 0.04 X 10*3/uL (0.00-0.10); Basophils % (A) 0.3 %; Eosinophils # (A) 0 X 10*3/uL (0.04-0.35); Eosinophils % (A) 0 %; HCT 36.9 % (39.6-50.0); Immature Grans, Automated 0.3 %; Lymphocytes # (A) 1.04 X 10*3/uL (0.90-5.00); Lymphocytes % (A) 8.2 %; MCHC 32.5 g/dL (32.0-37.0); MCV 92.3 fL (80.0-97.0); Mean Platelet Volume 10.3 fL (9.5-12.2); Monocytes % (A) 9.5 %; NRBC Per 100 WBC 0 /100 WBCS (0.0-0.0); Neutrophils # (A) 10.31 X 10*3/uL (1.80-7.70); Neutrophils % (A) 81.7 %; Platelet Count 202 X 10*3/uL (140-440); RDW 16.3 % (11.5-14.5); WBC 12.63 X 10*3/uL (4.50-10.00)
[2022-07-31] MEDS: ASPIRIN 81 MG PO SCH ×2 (09:46→20:40)
[2022-07-31] MEDS: CHOLECALCIFEROL 25 MCG (1000 IU) TABLET PO SCH (09:46)
[2022-07-31] MEDS: ATORVASTATIN 40 MG TAB PO SCH (09:46)
[2022-07-31] MEDS: lisinopriL 10 MG TAB PO SCH (09:46)
[2022-07-31] MEDS: CYANOCOBALAMIN 500 MCG TAB PO SCH (09:46)
[2022-07-31] MEDS: atenoloL 25 MG TAB PO SCH (09:46)
[2022-07-31 09:48] LABS: African American GFR (CKD) 110.9 (60.0-200.0); Albumin 3.2 g/dL (3.8-4.9); Albumin/Globulin Ratio 1.82 (1.60-3.17); Anion Gap 8.2 mmol/L (10.00-18.00); BUN/Creat Ratio 17.22 Ratio (12.00-20.00); Blood Urea Nitrogen 12.9 mg/dL (9.0-27.0); Calcium 8.4 mg/dL (8.7-10.3); Carbon Dioxide 23.1 mmol/L (20.0-27.5); Globulin 1.7 g/dL (1.6-3.3); Non-African American GFR(CKD) 95.6 (60.0-200.0); Potassium 4.1 mmol/L (3.5-5.5); Total Bilirubin 0.6 mg/dL (0.30-1.20); Total Protein 4.9 g/dL (6.2-8.2)
--- NOTE | 2022-07-31 11:28 | P.CONS ---
History of Present Illness - Reason for Consult Consult date: 07/31/22 - History of Present Illness Pavel Pozo, is a 67-year-old male who was admitted to [facility] by Dr. Bolaños and underwent left total knee arthroplasty on 07/30/2022, medical consultation was requested for management while hospitalized His past medical history is significant for history of hypertension, history of hyperlipidemia, history of osteoarthritis, history of bilateral lower extremity varicose veins, history of spinal stenosis with chronic back pain, history of kidney stones, and history of coronary artery disease with history of angioplasty and stent placement in 2002 On review of systems patient is alert and oriented 3 in no apparent distress patient is alert and oriented 3 he is complaining of left knee pain especially when trying to walk otherwise he denies any complaints there is no fever or chills no headache or dizziness no chest pain no shortness of breath no cough no nausea or vomiting no abdominal pain no diarrhea no blood in the stools no burning with urination no frequency or urgency and no hematuria. Past Medical History Past Medical History: Coronary Artery Disease (CAD), Hyperlipidemia, Hypertension, Myocardial Infarction ([place]), Osteoarthritis (OA) Additional Past Medical History / Comment(s): MS, pt's states regarding MS, "Years ago they told me he had MS, now they are saying it is something different, that mimics MS, I can't remember the name of it right now." spinal stenosis. problems in hips and weakness in lower back. still under investigation. Last Myocardial Infarction Date:: 1999 History of Any Multi-Drug Resistant Organisms: None Reported Past Surgical History: Heart Catheterization With Stent, Joint Replacement Additional Past Surgical History / Comment(s): bilateral hip replacement, right second finger partial amputation, cardiac cath 1999 with 3 stents, cardiac cath with 1 stent 2000, Knee debridement years ago. Past Anesthesia/Blood Transfusion Reactions: No Reported Reaction Date of Last Stent Placement:: 2000 Past Psychological History: No Psychological Hx Reported Smoking Status: Former smoker Past Alcohol Use History: Rare Additional Past Alcohol Use History / Comment(s): Quit smoking 06/02 smoked occasional cigars Past Drug Use History: Marijuana Additional Drug Use History / Comment(s): Marijuana use occasionally. Aware no use 24 hrs prior to procedure. - Past Family History Mother Family Medical History: Cancer Additional Family Medical History / Comment(s): stomach cancer Father Family Medical History: Deep Vein Thrombosis (DVT) Medications and Allergies Home Medications Medication Instructions Recorded Confirmed Type Aspirin 81 mg PO DAILY 08/18/21 07/23/22 History Atorvastatin [Lipitor] 40 mg PO DAILY 08/18/21 07/23/22 History Cholecalciferol [Vitamin D3 (25 25 mcg PO DAILY 08/18/21 07/23/22 History Mcg = 1000 Iu)] Cyanocobalamin (Vitamin B-12) 1,000 mcg PO DAILY 08/18/21 07/23/22 History [Vitamin B-12] atenoloL [Tenormin] 12.5 mg PO QAM 08/18/21 07/23/22 History hydrOXYzine HCL [Atarax] 25 mg PO TID PRN 08/18/21 07/23/22 History ramipriL [Ramipril] 2.5 mg PO QAM 08/18/21 07/23/22 History Aspirin 81 mg PO BID 30 Days #60 tab 07/30/22 Rx Diclofenac Sodium [Voltaren] 75 mg PO BID 30 Days #60 tab 07/30/22 Rx Docusate [Colace] 100 mg PO BID #60 capsule 07/30/22 Rx HYDROcodone/APAP 5-325MG [[place] 1 - 2 tab PO Q6HR PRN 7 Days #32 07/30/22 Rx 5-325] tab Omeprazole 40 mg PO DAILY 30 Days #30 cap 07/30/22 Rx Allergies Allergy/AdvReac Type Severity Reaction Status Date / Time glatiramer (copolymer 1) Allergy Anaphylaxis Verified 07/30/22 08:47 [From Copaxone] Physical Exam Vitals: Vital Signs Temp Pulse Pulse Pulse Resp BP Pulse Ox 07/31/22 07:55 96 07/31/22 07:45 98.2 F 61 18 111/70 96 07/31/22 02:00 97.8 F 76 16 102/69 95 07/30/22 20:00 97.7 F 96 17 117/56 96 07/30/22 17:46 65 128/77 98 07/30/22 17:31 65 107/68 94 L 07/30/22 17:16 64 108/67 93 L 07/30/22 17:01 61 106/70 92 L 07/30/22 16:46 69 114/72 95 07/30/22 16:43 93 L 07/30/22 16:31 98.6 F 79 18 136/66 99 07/30/22 16:09 60 16 108/68 100 07/30/22 15:54 65 16 119/76 100 07/30/22 15:39 69 16 130/77 91 L 07/30/22 15:24 77 16 128/86 100 07/30/22 15:09 77 16 129/86 99 07/30/22 14:54 96.8 F L 79 12 129/87 97 Intake and Output 07/30/22 07/31/22 07/31/22 22:59 06:59 14:59 Intake Total 2480 2060 Output Total 160 100 Balance 2320 1960 Intake: IV 2000 Intake, IV Titration 1100 Amount Lactated Ringers 1,000 ml 1000 @ 100 mls/hr IV .Q10H [facility] Rx#:[id number] ceFAZolin 2 gm In Sodium 100 Chloride 0.9% 50 ml @ 100 mls/hr IVPB ONCE PRN Rx# :[id number] Oral 480 960 Output: Drainage 160 100 Left Knee 160 100 Urine 0 Other: Voiding Method Toilet Urinal Weight 89.7 kg In general patient is alert and oriented x 3 in no distress HEENT head normocephalic and atraumatic Neck is supple no JVD no goiter no lymphadenopathy no carotid bruit Chest examination is clear to auscultation no crackles no wheezing Cardiac exam reveals regular heart sounds S1 and S2 no gallops no murmurs Abdomen is soft nontender no organomegaly with normal bowel sounds Extremity exam reveals no edema no cyanosis or clubbing Neurological examination reveals no gross focal deficits Results CBC & Chem 7: 07/31/22 06:21 07/31/22 06:21 Labs: Abnormal Lab Results - Last 24 Hours (Table) 07/31/22 07/31/22 Range/Units 06:21 06:21 WBC 12.63 H (4.50-10.00) X 10*3/uL RBC 4.00 L (4.40-5.60) X 10*6/uL Hgb 12.0 L (13.0-17.0) g/dL Hct 36.9 L (39.6-50.0) % RDW 16.3 H (11.5-14.5) % Neutrophils # 10.31 H (1.80-7.70) X 10*3/uL Monocytes # 1.20 H (0.20-1.00) X 10*3/uL Eosinophils # 0 L (0.04-0.35) X 10*3/uL Chloride 110 H (96-109) mmol/L Anion Gap 8.20 L (10.00-18.00) mmol/L Calcium 8.4 L (8.7-10.3) mg/dL Total Protein 4.9 L (6.2-8.2) g/dL Albumin 3.2 L (3.8-4.9) g/dL Assessment and Plan Plan: Severe osteoarthritis of the left knee status post left total knee arthroplasty on 07/30/2022 pain management and DVT prophylaxis per orthopedic protocol Underlying history of hypertension Underlying history of hyperlipidemia Underlying history of osteoarthritis, with previous history of bilateral hip replacement Underlying history of bilateral lower extremity varicose veins History of spinal stenosis with chronic back pain History of kidney stones History of coronary artery disease with history of angioplasty and stent placement in 2002 Previous history of smoking patient quit 1 year ago At this time patient was seen and examined on the medical floor Pain management and DVT prophylaxis per orthopedic protocol Home medications reviewed and reordered Will check labs in a.m. and continue to follow closely
[2022-07-31] MEDS: LACTATED RINGERS 1,000 ML IV SCH ×2 (13:12→22:25)
[2022-07-31] MEDS: SENNOSIDES-DOCUSATE SODIUM 1 EACH TAB PO SCH (20:40)
[2022-08-01] MEDS: HYDROcodone/APAP 5-325MG 1 EACH TAB PO PRN ×2 (02:40→10:12)
[2022-08-01 07:42] VITALS: BP 119/76; PULSE 79; RESP 18; TEMP 98.6
--- NOTE | 2022-08-01 07:56 | P.PN ---
Progress Note - Text Progress Note Date: 08/01/22 Patient is doing well this morning. He states that last night and yesterday afternoon had significant pain in his left knee, but it is better this morning. We will continue postoperative care as outlined and discussed his progress note. The patient would like to plan on discharging home later today which is okay as long as his pain is controlled and he passes therapy.
--- NOTE | 2022-08-01 07:58 | P.DS ---
Providers Attending physician: Gerson Bolaños Consults: 07/30/22 15:09 Consult Physician Routine Consulting Provider: Viki Barros Consult Reason/Comments: medical management Do you want consulting provider notified?: Yes Primary care physician: Kianna Nichole Assessment: Patient is a very pleasant 67-year-old male who is admitted to the hospital and underwent an uncomplicated left total knee replacement this past Tuesday. Following surgery he was admitted under my care. His drain was removed on postoperative day #1. He was treated with 2 doses of postoperative antibiotics. He was started on aspirin for DVT prophylaxis. Internal medicine was consulted for perioperative medical management. The patient did well and was ultimately cleared for discharge home on postoperative day #2. Plan - Discharge Summary Discharge Rx Participant: Yes New Discharge Prescriptions: New Aspirin 81 mg PO BID 30 Days #60 tab Omeprazole 40 mg PO DAILY 30 Days #30 cap Diclofenac Sodium [Voltaren] 75 mg PO BID 30 Days #60 tab Docusate [Colace] 100 mg PO BID #60 capsule HYDROcodone/APAP 5-325MG [[place] 5-325] 1 - 2 tab PO Q6HR PRN 7 Days #32 tab PRN Reason: Pain No Action Atorvastatin [Lipitor] 40 mg PO DAILY Cholecalciferol [Vitamin D3 (25 Mcg = 1000 Iu)] 25 mcg PO DAILY Aspirin 81 mg PO DAILY ramipriL [Ramipril] 2.5 mg PO QAM hydrOXYzine HCL [Atarax] 25 mg PO TID PRN PRN Reason: hives atenoloL [Tenormin] 12.5 mg PO QAM Cyanocobalamin (Vitamin B-12) [Vitamin B-12] 1,000 mcg PO DAILY Discharge Medication List Aspirin 81 mg PO DAILY 08/18/21 [History] Atorvastatin [Lipitor] 40 mg PO DAILY 08/18/21 [History] Cholecalciferol [Vitamin D3 (25 Mcg = 1000 Iu)] 25 mcg PO DAILY 08/18/21 [History] Cyanocobalamin (Vitamin B-12) [Vitamin B-12] 1,000 mcg PO DAILY 08/18/21 [History] atenoloL [Tenormin] 12.5 mg PO QAM 08/18/21 [History] hydrOXYzine HCL [Atarax] 25 mg PO TID PRN 08/18/21 [History] ramipriL [Ramipril] 2.5 mg PO QAM 08/18/21 [History] Aspirin 81 mg PO BID 30 Days #60 tab 07/30/22 [Rx] Diclofenac Sodium [Voltaren] 75 mg PO BID 30 Days #60 tab 07/30/22 [Rx] Docusate [Colace] 100 mg PO BID #60 capsule 07/30/22 [Rx] HYDROcodone/APAP 5-325MG [[place] 5-325] 1 - 2 tab PO Q6HR PRN 7 Days #32 tab 07/30/22 [Rx] Omeprazole 40 mg PO DAILY 30 Days #30 cap 07/30/22 [Rx] Follow up Appointment(s)/Referral(s): [facility], [NON-STAFF] - 1-2 Days ([facility] will call you to schedule your in home physical therapy visits. ) Gerson Bolaños MD [Medical Doctor] - 2 Weeks Activity/Diet/Wound Care/Special Instructions: Weight bear to tolerance on operative extremity with a walker. Keep surgical dressing in place until follow-up in the office. Call the office if dressing becomes saturated or falls off. May shower over dressing. Take pain medications as needed. Take aspirin 81mg twice a day for blood clot prevention. Follow-up in the office in two weeks at [facility]. Call the office with any question or concerns, Discharge Disposition: HOME WITH HOME HEALTH SERVICES
[2022-08-01] MEDS: LACTATED RINGERS 1,000 ML IV SCH (08:13)
[2022-08-01] MEDS: ATORVASTATIN 40 MG TAB PO SCH (08:15)
[2022-08-01] MEDS: CHOLECALCIFEROL 25 MCG (1000 IU) TABLET PO SCH (08:15)
[2022-08-01] MEDS: lisinopriL 10 MG TAB PO SCH (08:15)
[2022-08-01] MEDS: atenoloL 25 MG TAB PO SCH (08:15)
[2022-08-01] MEDS: CYANOCOBALAMIN 500 MCG TAB PO SCH (08:15)
[2022-08-01] MEDS: ASPIRIN 81 MG PO SCH (08:15)
--- NOTE | 2022-08-01 10:06 | P.PN ---
Subjective Progress Note Date: 08/01/22 Pavel Pozo, is a 67-year-old male who was admitted to [facility] by Dr. Bolaños and underwent left total knee arthroplasty on 07/30/2022, medical consultation was requested for management while hospitalized His past medical history is significant for history of hypertension, history of hyperlipidemia, history of osteoarthritis, history of bilateral lower extremity varicose veins, history of spinal stenosis with chronic back pain, history of kidney stones, and history of coronary artery disease with history of angioplasty and stent placement in 2002 On review of systems patient is alert and oriented 3 in no apparent distress patient is alert and oriented 3 he is complaining of left knee pain especially when trying to walk otherwise he denies any complaints there is no fever or chills no headache or dizziness no chest pain no shortness of breath no cough no nausea or vomiting no abdominal pain no diarrhea no blood in the stools no burning with urination no frequency or urgency and no hematuria. On 08/01/2022 patient is alert and oriented 3. Patient to be discharged home today per orthopedic services. Patient denies any chest pain or shortness breath. Patient denies nausea vomiting and diarrhea. Patient denies any urinary burning or frequency. Patient denies any issues with urination. Patient denies cough. Patient to follow-up PCP and orthopedic services for further management Objective - Vital Signs Vital signs: Vital Signs Temp 98.6 F 08/01/22 07:42 Pulse 79 08/01/22 07:42 Resp 18 08/01/22 07:42 BP 119/76 08/01/22 07:42 Pulse Ox 96 08/01/22 08:04 FiO2 Intake & Output 07/31/22 08/01/22 08/01/22 18:59 06:59 18:59 Other: Voiding Method Toilet # Voids 4 2 - Exam In general patient is alert and oriented x 3 in no distress HEENT head normocephalic and atraumatic Neck is supple no JVD no goiter no lymphadenopathy no carotid bruit Chest examination is clear to auscultation no crackles no wheezing Cardiac exam reveals regular heart sounds S1 and S2 no gallops no murmurs Abdomen is soft nontender no organomegaly with normal bowel sounds Extremity exam reveals no edema no cyanosis or clubbing Neurological examination reveals no gross focal deficits - Labs CBC & Chem 7: 07/31/22 06:21 07/31/22 06:21 Assessment and Plan Plan: Severe osteoarthritis of the left knee status post left total knee arthroplasty on 07/30/2022 pain management and DVT prophylaxis per orthopedic protocol Underlying history of hypertension Underlying history of hyperlipidemia Underlying history of osteoarthritis, with previous history of bilateral hip replacement Underlying history of bilateral lower extremity varicose veins History of spinal stenosis with chronic back pain History of kidney stones History of coronary artery disease with history of angioplasty and stent placement in 2002 Previous history of smoking patient quit 1 year ago At this time patient was seen and examined on the medical floor Pain management and DVT prophylaxis per orthopedic protocol Home medications reviewed and reordered Patient to be DC'd home per orthopedic services patient to follow-up with PCP for further management
[2022-08-01 10:22] LABS: Basophils # (A) 0.04 X 10*3/uL (0.00-0.10); Basophils % (A) 0.4 %; Eosinophils # (A) 0.12 X 10*3/uL (0.04-0.35); Eosinophils % (A) 1.3 %; HCT 34.9 % (39.6-50.0); HGB 11.5 g/dL (13.0-17.0); Immature Grans, Automated 0.6 %; Lymphocytes # (A) 1.29 X 10*3/uL (0.90-5.00); Lymphocytes % (A) 13.7 %; MCH 30.3 pg (27.0-32.0); MCV 92.1 fL (80.0-97.0); Mean Platelet Volume 10.6 fL (9.5-12.2); Monocytes # (A) 1.25 X 10*3/uL (0.20-1.00); Monocytes % (A) 13.3 %; NRBC Per 100 WBC 0 /100 WBCS (0.0-0.0); Neutrophils # (A) 6.66 X 10*3/uL (1.80-7.70); Neutrophils % (A) 70.7 %; Platelet Count 170 X 10*3/uL (140-440); RBC 3.79 X 10*6/uL (4.40-5.60); RDW 16.3 % (11.5-14.5); WBC 9.42 X 10*3/uL (4.50-10.00)
[2022-08-01 10:33] LABS: Albumin 3.4 g/dL (3.8-4.9); Albumin/Globulin Ratio 1.89 (1.60-3.17); Anion Gap 9.4 mmol/L (10.00-18.00); BUN/Creat Ratio 15.86 Ratio (12.00-20.00); Blood Urea Nitrogen 11.1 mg/dL (9.0-27.0); Calcium 8.3 mg/dL (8.7-10.3); Carbon Dioxide 24.6 mmol/L (20.0-27.5); Globulin 1.8 g/dL (1.6-3.3); Non-African American GFR(CKD) 98.3 (60.0-200.0); Potassium 3.7 mmol/L (3.5-5.5); Total Bilirubin 0.6 mg/dL (0.30-1.20); Total Protein 5.2 g/dL (6.2-8.2)
== END 2022-08-01 13:16 | disposition home health service (06) ==
LOC: OR 08:26 → 4SSUR 15:30 → OR 08-01 13:16
PROVIDERS: ATTEND Orthopaedic Surgery
DX: M17.12 Unilateral primary osteoarthritis, left knee (principal); I10 Essential (primary) hypertension; Z79.82 Long term (current) use of aspirin; Z79.899 Other long term (current) drug therapy; Z83.3 Family history of diabetes mellitus; Z82.49 Family history of ischemic heart disease and other diseases of the circulatory system; Z87.891 Personal history of nicotine dependence; Z86.59 Personal history of other mental and behavioral disorders
CPT/HCPCS: 27447; 64447; 64999; 94760 ×3; 97162; 80053 ×2; 85025 ×2; 73560; J2250; J1200; J1100; J0690 ×2; J2405 ×2; J3010; J1885; J1790; 76942

== ENCOUNTER → 2023-01-13 | Outpatient (CLI) | payer MEDICARE ==
--- NOTE | 2023-01-14 14:54 | MR ---
EXAMINATION TYPE: MR cspine/tspine/lspine wo con DATE OF EXAM: 01/13/2023 8:36 PM CLINICAL INDICATION:Male, 67 years old with history of M48.07 LUMBOSACRAL,M48.02 CERVICAL.M48.04 THOR ACIC; COMPARISON: 01/24/2018 MRI's, 07/14/2015 MRI. TECHNIQUE: Multi planar, multi sequence imaging was performed utilizing: T1-weighted, T2-weighted, a nd turbo inversion recovery imaging of the cervical and lumbar spine. MR contrast: IV Contrast: None. FINDINGS: CERVICAL: Alignment: The cervical vertebral bodies have preserved heights. Alignment is within normal limits gi camille patient positioning. Bones: Mild multilevel degeneration changes throughout the spine. T1 high T2 per high T1 signal proba ble vertebral body hemangioma. Scattered disc space narrowing and osteophyte formation. No abnormal b nika edema on inversion recovery sequences. Cord: The spinal cord is unremarkable with regards to their signal intensity and morphology. Discs: Multilevel disc desiccation is present. C2-C3: No significant disc pathology. The spinal canal is patent. No neural foraminal stenosis. C3-C4: A disc osteophyte complex is present which minimally narrows the ventral subarachnoid space. No neural foraminal stenosis. C4-C5: No significant disc pathology. The spinal canal is patent. No neural foraminal stenosis. C5-C6: No significant disc pathology. The spinal canal is patent. Bilateral facet and uncovertebral joint arthropathy are present with moderate to severe left and mild to moderate right neural foramina l stenosis. C6-C7: A disc osteophyte complex is present with mild spinal canal stenosis. Bilateral facet and unc overtebral joint arthropathy are present with moderate to severe right and moderate left neural jt inal stenosis. C7-T1: No significant disc pathology. The spinal canal is patent. No neural foraminal stenosis. Other: None. THORACIC: Grade 1 anterolisthesis of T10 on T11. There is facet joint arthropathy with moderate to se jean marie bilateral neural foraminal stenosis. Findings not significantly changed from 2018. No additional evidence for significant spinal canal or neural foraminal stenosis within the thoracic spine. Thoracic spinal cord signal is maintained. LUMBAR: Alignment: The lumbar vertebral bodies have preserved heights and alignment. Cord: The conus medullaris and the distal spinal cord appear unremarkable with regards to their signa l intensity and morphology. Bones/Discs: Multilevel degeneration changes throughout the lumbar spine with Modic endplate changes, disc space tearing, Schmorl's nodes, facet joint arthropathy and osteophyte formation. T12-L1: Disc bulge with central disc protrusion without significant spinal canal stenosis. There is d isplacement of the cauda equina secondary to facet joint arthropathy at this level. There is moderate to severe right and mild left neural foraminal stenosis. L1-L2: No evidence of significant spinal canal stenosis. Facet joint arthropathy moderate to severe l eft and mild to moderate right bilateral neural foraminal stenosis. L2-L3: Disc bulge and facet joint arthropathy result in mild spinal canal and mild bilateral neural f oraminal stenosis. L3-L4: Disc space narrowing with osteophytes and Disc bulge and facet joint arthropathy result in mod erate spinal canal and severe right and mild to moderate left bilateral neural foraminal stenosis. L4-L5: Disc bulge and facet joint arthropathy result in mild spinal canal and severe right and mild t o moderate left bilateral neural foraminal stenosis. L5-S1: The disc is rounded posterior morphology without significant spinal canal stenosis. Facet join t arthropathy with severe bilateral neural foraminal stenosis. Other findings: None. IMPRESSION: 1. No definitive evidence of significant spinal canal stenosis within the cervical, thoracic or lumb ar spine. 2. Mild to moderate disc degeneration with associated osteoarthritic changes within the cervical spi ne and thoracic spine. The cervical and thoracic spine degeneration is similar to 2018. 3. Stable T10-T11 grade 1 anterolisthesis with moderate to severe bilateral neural foraminal stenosi s. 4. Severe disc degeneration changes throughout the lumbar spine with multilevel severe neural forami nal stenosis as described above. 5. Small central disc protrusion or T12-L1 without significant spinal canal or neural foraminal sten osis.
== END | disposition home or self-care (01) ==
LOC: RADMRIMAIN 18:10
PROVIDERS: ATTEND Neurological Surgery
DX: M50.30 Other cervical disc degeneration, unspecified cervical region (principal); M51.34 Other intervertebral disc degeneration, thoracic region; M43.14 Spondylolisthesis, thoracic region; M99.72 Connective tissue and disc stenosis of intervertebral foramina of thoracic region; M99.73 Connective tissue and disc stenosis of intervertebral foramina of lumbar region; M51.25 Other intervertebral disc displacement, thoracolumbar region; M51.36 Other intervertebral disc degeneration, lumbar region; M48.07 Spinal stenosis, lumbosacral region; M48.02 Spinal stenosis, cervical region; M48.04 Spinal stenosis, thoracic region
CPT/HCPCS: 72141; 72146; 72148